=== PATIENT | male | born 1940 | race Caucasian/White ===

== ENCOUNTER 2016-06-25 18:03 | Inpatient (IN) | payer BC, OTHER ==
[~2016-06-25] VITALS: Ht 179.1 cm; Wt 71.5 kg
[~2016-06-25 18:03] MED LIST: ALL300 PO; ASPI81TA28 PO; CALC600T9 PO; CIPR-255 PO; CLB/200 PO; FRCT/ PO; METO-479 PO
[2016-06-25 19:29] LABS: BASO % 0.2 %; BASO ABS # 0.02 K/uL (0-0.2); COMPLETE YES; EOS % 5.4 %; HEMATOCRIT 43.3 % (42-52); IG% 0.5 %; LYMPH % 28.2 %; LYMPH ABS # 2.39 K/uL (1.2-3.4); MEAN CELL VOLUME 90.2 fL (80-100); MEAN CORPUSCULAR HEMOGLOBIN 30.2 pg (25-34); MEAN CORPUSCULAR HGB CONC 33.5 g/dl (32-36); MEAN PLATELET VOLUME 10.6 fL (7.4-10.4); MONO % 9.7 %; PLATELET COUNT 229 K/uL (130-400); WHITE BLOOD COUNT 8.48 K/uL (4.8-10.8)
[2016-06-25] MEDS ORDERED: ASPIRIN 81 MG CHEW PO STA (19:50)
[2016-06-25 19:53] LABS: BUN/CREATININE RATIO 24.5 (10-20); CALCIUM 10.3 mg/dl (8.5-10.1); POTASSIUM 4.3 mmol/L (3.5-5.1)
[2016-06-25 19:57] LABS: ALB/GLOB RATIO 1.1 (0.9-2); CKMB/CK RATIO 3.2 (0-3.0)
--- NOTE | 2016-06-25 20:22 | DIAGNOSTIC IMAGING REPORT ---
SINGLE VIEW CHEST CLINICAL HISTORY: Dyspnea. Atypical chest pain. FINDINGS: An AP, portable, upright chest radiograph is compared to study dated 12/25/2015 and correlated with chest CT dated 03/02/2006. The examination is degraded by portable technique and patient rotation. The heart is enlarged and there is atherosclerotic calcification. There is mild pulmonary vascular congestion. There are low lung volumes and bibasilar atelectasis. No large pleural effusion or pneumothorax is seen. The skeletal structures are osteopenic. The bony thorax is grossly intact. Surgical anchors are noted in the left humeral head. IMPRESSION: Cardiomegaly with evidence of mild congestive failure. Electronically signed by: Des Rush M.D. 06/25/2016 8:21 PM
[2016-06-25] MEDS ORDERED: METO-217 PO (20:23)
[2016-06-25] MEDS ORDERED: BUTALBITAL/ACETAMIN/CAFFEINE TAB PO PRN (20:30)
[2016-06-25 21:00] LABS: PROTHROMBIN TIME (PATIENT) 10.4 SECONDS (9.0-12.0)
[2016-06-25] MEDS ORDERED: ZOLPIDEM TARTRATE 5 MG TAB PO PRN (21:00)
[2016-06-25] MEDS ORDERED: CIPROFLOXACIN 500 MG TAB PO SCH (21:00)
[2016-06-25] MEDS ORDERED: METOPROLOL SUCC 50MG EXT REL TAB PO SCH (21:00)
[2016-06-25] MEDS ORDERED: ONDANSETRON INJ 2 MG/ML 2 ML VIAL IV PRN (21:00)
[2016-06-25] MEDS ORDERED: NITROGLYCERIN 0.4 MG SL PER TAB CHARGE SL PRN (21:00)
[2016-06-25] MEDS ORDERED: ACETAMINOPHEN 325 MG TAB PO PRN (21:00)
[2016-06-25 21:40] LABS: LYME DISEASE AB IGG NEG (NEG); LYME DISEASE AB IGM NEG (NEG)
[2016-06-25 22:12] LABS: CKMB/CK RATIO 3.4 (0-3.0)
[2016-06-25 22:40] VITALS: BP_SYST 199; BP_SYST 205; BP_DIAS 49; BP_DIAS 87; PULSE 64; TEMP 36.6; O2SAT 96; Ht 179.1 cm; Wt 71.5 kg
--- NOTE | 2016-06-25 22:44 | History and Physical ---
History & Physical Date & Time of Service: Jun 25, 2016 at 22:34 Chief Complaint: Atrial Flutter, Paroxysmal Primary Care Physician: Eyal Monroe M.D. History of Present Illness Source: patient, spouse The patient is a 75-year-old male who presents to emergency department with substernal burning in his chest that occurred while he was out sleeping some snow off the front of his porch and steps. She reports that his had these similar symptoms on previous occasions this winter when his gone out to sweep snow. He presents emergency department for assessment, and had initial EKG which suggested atrial flutter with 3-1 block, which was discussed with Dr. Norton from cardiology, the patient was referred for evaluation for admission. Past Medical/Surgical History Medical Problems: (1) Scoliosis Status: Chronic Family History Diabetes mellitus FH: cancer FH: heart disease Hypertension Social History Smoking Status: Never Smoker Smokeless Tobacco Use: No Alcohol Use: none Drug Use: none Marital Status: Housing status: lives with family Occupational Status: unemployed Immunizations History of Influenza Vaccine: No History of Tetanus Vaccine?: Unknown History of Pneumococcal: Yes Pneumococcal Date: Jul 10, 2009 History of Hepatitis B Vaccine: No Multi-Drug Resistant Organisms History of MDRO: No Allergies Coded Allergies: No Known Allergies (Verified , 06/25/16) Home Medications Scheduled Allopurinol (Allopurinol), 150 MG PO DAILY Aspirin (Aspirin Ec), 81 MG PO DAILY Celecoxib (CeleBREX), 200 MG PO DAILY Metoprolol Succinate (Toprol Xl), 50 MG PO BID Scheduled PRN Acetamin/Butalbital/Caffeine (Fioricet), 1 TAB PO UD PRN for Headache Review of Systems The patient denies palpitations, cough, lower extremity swelling, vision change , hearing change, sore throat, fevers, chills, sweats, weight change, fatigue, nausea, vomiting, abdominal pain, pelvic pain, blood in urine or stool, dysuria , urinary frequency or urgency, lightheadedness, dizziness, headache, memory loss, rash, abnormal bruising or bleeding, imbalance, focal or generalized weakness, numbness or tingling in arms or legs, arthralgias or myalgias, back or neck pain, night sweats, or allergy symptoms. The review of systems is otherwise negative other than for that already noted above, and at least 10 systems have been reviewed. Physical Exam Vital Signs Date Time Temp Pulse Resp B/P Pulse Ox O2 Delivery O2 Flow Rate FiO2 06/25/16 22:02 36.6 77 19 169/92 95 06/25/16 21:33 77 19 95 06/25/16 21:29 169/92 06/25/16 21:28 57 18 96 06/25/16 21:23 58 19 96 06/25/16 21:18 55 22 97 06/25/16 21:13 57 19 96 06/25/16 21:08 68 16 96 06/25/16 21:03 59 15 96 06/25/16 21:00 155/106 06/25/16 20:58 58 22 95 06/25/16 20:53 54 22 95 06/25/16 20:48 57 22 96 06/25/16 20:43 57 22 95 06/25/16 20:38 57 20 96 06/25/16 20:33 57 24 96 06/25/16 20:29 179/82 06/25/16 20:28 60 17 96 06/25/16 20:23 57 16 96 06/25/16 20:18 66 21 94 06/25/16 20:13 58 22 97 06/25/16 20:08 59 22 96 06/25/16 20:03 67 19 98 06/25/16 19:58 59 23 98 06/25/16 19:53 62 17 98 06/25/16 19:48 58 19 98 06/25/16 19:43 67 24 97 06/25/16 19:38 56 17 97 06/25/16 19:33 56 21 96 06/25/16 19:29 152/119 06/25/16 19:28 69 17 96 06/25/16 19:27 52 06/25/16 19:27 56 18 173/85 97 Room Air 06/25/16 19:26 97 Room Air 06/25/16 19:21 173/85 06/25/16 19:10 97 Room Air 06/25/16 18:06 36.6 71 18 171/73 97 Room Air The patient is awake, well-developed and adequately nourished, alert and oriented 3, normocephalic and atraumatic, lying in bed and in no acute distress. HEENT--PERRL, EOMI, mucous membranes moist, and oropharynx normal. Neck--supple, no JVD or bruits, thyroid normal, trachea midline, no adenopathy. Heart--normal S1 and S2, no extra beats, no murmurs, rubs or gallops. Lungs--clear bilaterally with good air movement, no respiratory distress, no accessory muscle use. Abdomen--normal bowel sounds and soft, nontender and nondistended, no hernias or masses, no organomegaly. Extremities--no cyanosis, clubbing or edema. There are good distal pulses b/l. Dermatologic--normal skin turgor, normal color, warm and dry, no abnormal lymph nodes, no rash. Neurologic--cranial nerves II through XII grossly intact. Rheumatologic--normal range of motion, nontender, muscles and joints. Psychiatric--normal affect. Diagnostics Laboratory Results Results Past 24 Hours Test 06/25/16 19:15 06/25/16 19:24 06/25/16 20:33 Range/Units White Blood Count 8.48 4.8-10.8 K/uL Red Blood Count 4.80 4.7-6.1 M/uL Hemoglobin 14.5 14.0-18.0 g/dL Hematocrit 43.3 42-52 % Mean Corpuscular Volume 90.2 80-100 fL Mean Corpuscular Hemoglobin 30.2 25-34 pg Mean Corpuscular Hemoglobin Concent 33.5 32-36 g/dl Platelet Count 229 130-400 K/uL Mean Platelet Volume 10.6 7.4-10.4 fL Neutrophils (%) (Auto) 56.0 % Lymphocytes (%) (Auto) 28.2 % Monocytes (%) (Auto) 9.7 % Eosinophils (%) (Auto) 5.4 % Basophils (%) (Auto) 0.2 % Neutrophils # (Auto) 4.75 1.4-6.5 K/uL Lymphocytes # (Auto) 2.39 1.2-3.4 K/uL Monocytes # (Auto) 0.82 0.11-0.59 K/uL Eosinophils # (Auto) 0.46 0-0.5 K/uL Basophils # (Auto) 0.02 0-0.2 K/uL RDW Standard Deviation 44.2 36.4-46.3 fL RDW Coefficient of Variation 13.4 11.5-14.5 % Immature Granulocyte % (Auto) 0.5 % Immature Granulocyte # (Auto) 0.04 0.00-0.02 K/uL Sodium Level 143 136-145 mmol/L Potassium Level 4.3 3.5-5.1 mmol/L Chloride Level 109 98-107 mmol/L Carbon Dioxide Level 25 21-32 mmol/L Anion Gap 9.0 3-11 mmol/L Blood Urea Nitrogen 25 7-18 mg/dl Creatinine 1.00 0.60-1.40 mg/dl Est Creatinine Clear Calc Drug Dose 63.9 ml/min Estimated GFR () 83.8 Estimated GFR (Non- 72.3 BUN/Creatinine Ratio 24.5 10-20 Random Glucose 90 70-99 mg/dl Calcium Level 10.3 8.5-10.1 mg/dl Total Bilirubin 0.2 0.2-1 mg/dl Aspartate Amino Transf (AST/SGOT) 24 15-37 U/L Alanine Aminotransferase (ALT/SGPT) 35 12-78 U/L Alkaline Phosphatase 101 45-117 U/L Total Creatine Kinase 72 61 39-308 U/L Creatine Kinase MB 2.3 2.1 0.5-3.6 ng/ml Creatine Kinase MB Ratio 3.2 3.4 0-3.0 Total Protein 7.2 6.4-8.2 gm/dl Albumin 3.8 3.4-5.0 gm/dl Globulin 3.4 2.5-4.0 gm/dl Albumin/Globulin Ratio 1.1 0.9-2 Bedside Troponin I 0.110 0-0.045 ng/ml Prothrombin Time 10.4 9.0-12.0 SECONDS Prothromb Time International Ratio 1.0 0.9-1.1 Activated Partial Thromboplast Time 25.9 21.0-31.0 SECONDS Partial Thromboplastin Ratio 1.0 Troponin I 0.096 0-0.045 ng/ml Thyroid Stimulating Hormone (TSH) 1.910 0.300-4.500 uIu/ml Lyme Disease IgG Antibody NEG NEG Lyme Disease IgM Antibody NEG NEG Diagnostic Radiology Patient Name: ZITA BRUSH Unit Number: [id number] Dictated: 06/25/162019 Transcribed: 06/25/162019 EV Printed Date/Time: [~ rep prt dt]/[~ rep prt tm] [~ rep ct labl] - [~ rep ct ivnm] [facility] Radiology Department [place], [place] [id number] Dictated: 06/25/162019 Transcribed: 06/25/162019 EV Printed Date/Time: [~ rep prt dt]/[~ rep prt tm] [~ rep ct labl] - [~ rep ct ivnm] SINGLE VIEW CHEST CLINICAL HISTORY: Dyspnea. Atypical chest pain. FINDINGS: An AP, portable, upright chest radiograph is compared to study dated 12/25/2015 and correlated with chest CT dated 03/02/2006. The examination is degraded by portable technique and patient rotation. The heart is enlarged and there is atherosclerotic calcification. There is mild pulmonary vascular congestion. There are low lung volumes and bibasilar atelectasis. No large pleural effusion or pneumothorax is seen. The skeletal structures are osteopenic. The bony thorax is grossly intact. Surgical anchors are noted in the left humeral head. IMPRESSION: Cardiomegaly with evidence of mild congestive failure. Electronically signed by: Des Rush M.D. 06/25/2016 8:21 PM The status of this report is Signed. Draft = Not yet reviewed or approved by Radiologist. Signed = Reviewed and approved by Radiologist. <AttendingPhy></AttendingPhy> <FamilyPhy>Eyal Monroe M.D.</FamilyPhy > <PrimaryPhy>Eyal Monroe M.D.</PrimaryPhy> <UnitNumber>[id number]</ UnitNumber> <VisitNumber>[id number]</VisitNumber> <PatientName>ZITA BRUSH< /PatientName> <DateOfBirth>1940</DateOfBirth> <Location>C.EDB</Location> < ServiceDate>06/25/16</ServiceDate> <MNE>ESINDI</MNE> <OrderingPhy>ED, PROTOCOL</ OrderingPhy> <OrderingPhyMNE>f rep ord dr zambrano</OrderingPhyMNE> <DictatingPhyMNE> f rep dict dr zambrano</DictatingPhyMNE> <CCListMNE>f rep ct mne</CCListMNE> < AdmittingPhyMNE>f pt admit dr zambrano</AdmittingPhyMNE> <AttendingPhyMNE>f pt attend dr zambrano</AttendingPhyMNE> <ConsultingPhyMNE>f pt consult dr zambrano</ConsultingPhyMNE> <FamilyPhyMNE>f pt fam dr zambrano</FamilyPhyMNE> <OtherPhyMNE>f pt other dr zambrano</OtherPhyMNE> < PrimaryPhyMNE>f pt prim care dr zambrano</PrimaryPhyMNE> <ReferringPhyMNE>f pt referring dr zambrano</ReferringPhyMNE> EKG The patient had 2 EKGs performed in emergency department: First EKG showed atrial flutter with 3-1 block, with no acute ST-T changes. The second EKG showed normal sinus rhythm with no acute ST-T changes. This second one was performed at the patient spontaneously converted Impression Assessment and Plan Atrial flutter with 3:1 block, with conversion to normal sinus rhythm will emergency department--the patient admitted to the telemetry unit, for serial cardiac enzymes, cardiac rhythm monitoring, a 2-D echocardiogram with Dopplers, and will be seen by cardiology Dr. Norton in the a.m. We'll continue metoprolol tartrate 50 mg by mouth twice a day, aspirin 81 mg by mouth daily, will have available Lopressor 5 mg IV every 4 hours when necessary heart rate greater than 110. Gout--continue allopurinol 300 mg by mouth daily. Osteoarthritis--continue Celebrex 200 mg by mouth daily. Migraine headache--continue Fioricet 1 by mouth daily when necessary. Level of Care Telemetry Advanced Directives Existing Advance Directive: No Existing Living Will: No Existing Power of Camera Assembler: No Resuscitation Status FULL RESUSCITATION VTE Prophylaxis VTE Risk Assessment Done? Y/N: Yes Risk Level: Moderate Given or contraindicated: SCD's Social Service Consult None Apply
[2016-06-25] MEDS ORDERED: METOPROLOL TARTRATE 1 MG/ML VIAL IV PRN (22:45)
[2016-06-25 23:17] VITALS: BP 157/67; PULSE 54; TEMP 36.7; O2SAT 97
[2016-06-26] VITALS (10 sets, daily range): BP systolic 148–178; BP diastolic 67–82; PULSE 51–78; TEMP 36.5–36.9; O2SAT 95–97
[2016-06-26] MEDS: METOPROLOL SUCC 50MG EXT REL TAB PO SCH ×2 (00:06→08:07)
[2016-06-26] MEDS: CALCIUM 600MG + VIT D 400 IU TAB PO SCH ×3 (00:07→20:32)
[2016-06-26] MEDS ORDERED: NURSING VERBAL MED ORDER ONE (00:15)
[2016-06-26] MEDS ORDERED: LORAZEPAM 0.5 MG TAB ONE (00:22)
[2016-06-26] MEDS ORDERED: LORAZEPAM INJ 0.25 MG in SYRINGE 0.125 ML IV PRN (00:30)
[2016-06-26] MEDS ORDERED: LORAZEPAM 2 MG/ML 1 ML VIAL IV PRN (00:30)
--- NOTE | 2016-06-26 01:25 | EMERGENCY ROOM VISIT NOTE ---
History Report prepared by Todd: Orly Gomez Under the Supervision of: Dr. Aaron Blanchard M.D. First contact with patient: 19:28 Chief Complaint: RESPIRATORY PROBLEMS Stated Complaint: CHEST PAIN Nursing Triage Summary: having sob when Im out in the cold. symptoms have been ongoing for a while now History of Present Illness The patient is a 75 year old male who presents to the Emergency Room with complaints of intermittent shortness of breath for the past few weeks. He is accompanied by his . He reports the shortness of breath seems to worsen when he is outside in the cold weather and also with exertion. This afternoon around 1500, he went outside to shovel his driveway when his symptoms worsened. He also experienced some brief chest pain and shoulder pain. He states he feels "fine" here in the ED. The patient admits to a similar episode like today's symptoms "a few weeks ago", where he also experienced shortness of breath after exertion and brief chest pain. He admits to a history of a heart murmur, but states he has not seen a Head Bag[employer] Porter in a few years. He also has a history of hypertension and takes Toprol daily and states his dosage was recently increased. He also takes a daily Aspirin and notes he took 2 Aspirin prior to arrival this evening. The patient denies LOC, headache, fevers, chills, diaphoresis, visual changes, neck pain, nausea, vomiting, abdominal pain, back pain, melena, hematochezia, urinary symptoms, numbness, weakness, lymphadenopathy, rash, or other complaints. 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 A total of ten systems were reviewed and were otherwise negative. Past Medical & Surgical Medical Problems: (1) Atrial flutter, paroxysmal (2) Scoliosis Family History Diabetes mellitus FH: cancer FH: heart disease Hypertension Social History Smoking Status: Never Smoker Drug Use: none Marital Status: Housing Status: lives with family Occupation Status: unemployed Current/Historical Medications Scheduled Allopurinol (Allopurinol), 150 MG PO DAILY Aspirin (Aspirin Ec), 81 MG PO DAILY Celecoxib (CeleBREX), 200 MG PO DAILY Metoprolol Succinate (Toprol Xl), 50 MG PO BID Scheduled PRN Acetamin/Butalbital/Caffeine (Fioricet), 1 TAB PO UD PRN for Headache Allergies Coded Allergies: No Known Allergies (Verified , 06/25/16) Physical Exam Vital Signs Date Time Temp Pulse Resp B/P Pulse Ox O2 Delivery O2 Flow Rate FiO2 06/25/16 20:53 54 22 95 06/25/16 20:48 57 22 96 06/25/16 20:43 57 22 95 06/25/16 20:38 57 20 96 06/25/16 20:33 57 24 96 06/25/16 20:29 179/82 06/25/16 20:28 60 17 96 06/25/16 20:23 57 16 96 06/25/16 20:18 66 21 94 06/25/16 20:13 58 22 97 06/25/16 20:08 59 22 96 06/25/16 20:03 67 19 98 06/25/16 19:58 59 23 98 06/25/16 19:53 62 17 98 06/25/16 19:48 58 19 98 06/25/16 19:43 67 24 97 06/25/16 19:38 56 17 97 06/25/16 19:33 56 21 96 06/25/16 19:29 152/119 06/25/16 19:28 69 17 96 06/25/16 19:27 52 06/25/16 19:27 56 18 173/85 97 Room Air 06/25/16 19:26 97 Room Air 06/25/16 19:21 173/85 06/25/16 19:10 97 Room Air 06/25/16 18:06 36.6 71 18 171/73 97 Room Air Physical Exam GENERAL: Awake, alert, well-appearing, in no acute distress HENT: Normocephalic, atraumatic. Oropharynx unremarkable. EYES: Normal conjunctiva. Sclera non-icteric. NECK: Supple. No nuchal rigidity. FROM. No JVD. RESPIRATORY: Clear to auscultation. CARDIAC: Bradycardic heart rate, normal rhythm. Extremities warm and well perfused. Pulses equal. ABDOMEN: Soft, non-distended. No tenderness to palpation. No rebound or guarding. No masses. RECTAL: Deferred. MUSCULOSKELETAL: Chest examination reveals no tenderness. The back is symmetrical on inspection without obvious abnormality. There is no CVA tenderness to palpation. No joint edema. LOWER EXTREMITIES: Calves are equal size bilaterally and non-tender. No edema. No discoloration. NEURO: Normal sensorium. No sensory or motor deficits noted. SKIN: No rash or jaundice noted. Medical Decision & Procedures ER Provider Diagnostic Interpretation: This X-Ray was reviewed and interpreted by myself and the radiologist. SINGLE VIEW CHEST CLINICAL HISTORY: Dyspnea. Atypical chest pain. FINDINGS: An AP, portable, upright chest radiograph is compared to study dated 12/25/2015 and correlated with chest CT dated 03/02/2006. The examination is degraded by portable technique and patient rotation. The heart is enlarged and there is atherosclerotic calcification. There is mild pulmonary vascular congestion. There are low lung volumes and bibasilar atelectasis. No large pleural effusion or pneumothorax is seen. The skeletal structures are osteopenic. The bony thorax is grossly intact. Surgical anchors are noted in the left humeral head. IMPRESSION: Cardiomegaly with evidence of mild congestive failure. Electronically signed by: Des Rush M.D. 06/25/2016 8:21 PM Laboratory Results 06/25/16 19:15 Red Blood Count 4.80, Mean Corpuscular Volume 90.2, Mean Corpuscular Hemoglobin 30.2, Mean Corpuscular Hemoglobin Concent 33.5, Mean Platelet Volume 10.6, Neutrophils (%) (Auto) 56.0, Lymphocytes (%) (Auto) 28.2, Monocytes (%) (Auto) 9.7, Eosinophils (%) (Auto) 5.4, Basophils (%) (Auto) 0.2, Neutrophils # (Auto) 4.75, Lymphocytes # (Auto) 2.39, Monocytes # (Auto) 0.82, Eosinophils # (Auto) 0.46, Basophils # (Auto) 0.02 06/25/16 19:15 Test 06/25/16 19:15 06/25/16 19:24 06/25/16 20:33 White Blood Count 8.48 K/uL (4.8-10.8) Red Blood Count 4.80 M/uL (4.7-6.1) Hemoglobin 14.5 g/dL (14.0-18.0) Hematocrit 43.3 % (42-52) Mean Corpuscular Volume 90.2 fL (80-100) Mean Corpuscular Hemoglobin 30.2 pg (25-34) Mean Corpuscular Hemoglobin Concent 33.5 g/dl (32-36) Platelet Count 229 K/uL (130-400) Mean Platelet Volume 10.6 fL (7.4-10.4) Neutrophils (%) (Auto) 56.0 % Lymphocytes (%) (Auto) 28.2 % Monocytes (%) (Auto) 9.7 % Eosinophils (%) (Auto) 5.4 % Basophils (%) (Auto) 0.2 % Neutrophils # (Auto) 4.75 K/uL (1.4-6.5) Lymphocytes # (Auto) 2.39 K/uL (1.2-3.4) Monocytes # (Auto) 0.82 K/uL (0.11-0.59) Eosinophils # (Auto) 0.46 K/uL (0-0.5) Basophils # (Auto) 0.02 K/uL (0-0.2) RDW Standard Deviation 44.2 fL (36.4-46.3) RDW Coefficient of Variation 13.4 % (11.5-14.5) Immature Granulocyte % (Auto) 0.5 % Immature Granulocyte # (Auto) 0.04 K/uL (0.00-0.02) Anion Gap 9.0 mmol/L (3-11) Est Creatinine Clear Calc Drug Dose 63.9 ml/min Estimated GFR () 83.8 Estimated GFR (Non- 72.3 BUN/Creatinine Ratio 24.5 (10-20) Calcium Level 10.3 mg/dl (8.5-10.1) Total Bilirubin 0.2 mg/dl (0.2-1) Aspartate Amino Transf (AST/SGOT) 24 U/L (15-37) Alanine Aminotransferase (ALT/SGPT) 35 U/L (12-78) Alkaline Phosphatase 101 U/L (45-117) Total Protein 7.2 gm/dl (6.4-8.2) Albumin 3.8 gm/dl (3.4-5.0) Globulin 3.4 gm/dl (2.5-4.0) Albumin/Globulin Ratio 1.1 (0.9-2) Bedside Troponin I 0.110 ng/ml (0-0.045) Prothrombin Time 10.4 SECONDS (9.0-12.0) Prothromb Time International Ratio 1.0 (0.9-1.1) Activated Partial Thromboplast Time 25.9 SECONDS (21.0-31.0) Partial Thromboplastin Ratio 1.0 Total Creatine Kinase 61 U/L (39-308) Creatine Kinase MB 2.1 ng/ml (0.5-3.6) Creatine Kinase MB Ratio 3.4 (0-3.0) Troponin I 0.096 ng/ml (0-0.045) Thyroid Stimulating Hormone (TSH) 1.910 uIu/ml (0.300-4.500) Lyme Disease IgG Antibody NEG (NEG) Lyme Disease IgM Antibody NEG (NEG) Laboratory results reviewed by me Medications Administered Medications (Trade) Dose Ordered Sig/Jazzy Route Start Time Stop Time Status Last Admin Dose Admin Aspirin (Aspirin Chew) 162 mg NOW STAT PO 06/25/16 19:50 06/25/16 19:51 DC 06/25/16 19:59 162 MG ECG Indication: SOB/dyspnea Rate (beats per minute): 57 Rhythm: other (Slow flutter with 3 to 1 AV block) Findings: complete heart block, 1st degree AV block Comparison ECG Date: Rate has increased when compared to EKG from 03/08/14 Change: 2nd EKG on 06/25/16: Sinus Bradycardia, rate of 59, LVH, Septal Q-Waves, when compared to first EKG, the 3-1 flutter resolved. ED Course 1937: The patient was evaluated in room B9. A complete history and physical exam was performed. 1950: Aspirin 162 mg PO. 1952: I discussed the patients case with Dr. Norton, [facility] Cardiology. The patient will be further evaluated. 2012: I discussed the patients case with Dr. Zuniga, [facility] Hospitalist. The patient will be further evaluated. Medical Decision Triage Nursing notes reviewed. The patient's presentation and history were concerning for chest pain and shortness of breath. Etiologies such as cardiac ischemia, aortic dissection, pulmonary embolism, pneumonia, pneumothorax, musculoskeletal, infections, gastrointestinal, as well as others were entertained. The patient was evaluated. His ECG was concerning for a possible block versus 3 -1 a flutter. I did consult with Dr. Mario Alberto Norton of cardiology. After further review it appears the patient has a rate controlled A. fib flutter. The patient's CBC and chemistry panel were unremarkable. His troponin was elevated concerning for non-ST elevation [place]. The patient was given aspirin. I did discuss the case with Dr. Azam Zuniga who will evaluate the patient for further management. He was going to see the patient right away and will order any anticoagulation necessary. Repeat ECG was performed and revealed return to sinus rhythm. The patient and were informed of the findings and were pleased with the treatment. The chart was completed utilizing [employer] Speech voice recognition software. Grammatical errors, random word insertions, pronoun errors, and incomplete sentences are an occasional consequence of this system due to software limitations, ambient noise, and hardware issues. Any formal questions or concerns about the content, text, or information contained within the body of this dictation should be directly addressed to the physician for clarification. Consults Time Called: 1949 Consulting Physician: Dr. Norton [facility] Cardiology Returned Call: 1952 I discussed the [facility] The patient will be further evaluated. Additional Consults: Time Called: 2009 Consulted Physician: Dr. Zuniga [facility] Hospitalist Returned Call: 2012 Additional Comments: I discussed the patients case with Dr. Zuniga [facility] Hospitalist. The patient will be further evaluated. Impression Primary Impression: Elevated troponin Additional Impressions: NSTEMI (non-ST elevated myocardial infarction), New onset atrial flutter Scribe Attestation The scribe's documentation has been prepared under my direction and personally reviewed by me in its entirety. I confirm that the note above accurately reflects all work, treatment, procedures, and medical decision making performed by me. Departure Information Dispostion Being Evaluated By Hospitalist Eyal Huang M.D. (PCP) Patient Instructions A Signature Page, [facility]
[2016-06-26 04:47] LABS: BASO % 0.4 %; BASO ABS # 0.03 K/uL (0-0.2); COMPLETE YES; EOS % 6.2 %; HEMATOCRIT 41.6 % (42-52); IG% 0.2 %; LYMPH % 31.8 %; LYMPH ABS # 2.71 K/uL (1.2-3.4); MEAN CELL VOLUME 91.6 fL (80-100); MEAN CORPUSCULAR HEMOGLOBIN 30.8 pg (25-34); MEAN CORPUSCULAR HGB CONC 33.7 g/dl (32-36); MEAN PLATELET VOLUME 10.9 fL (7.4-10.4); NEUT % 51.4 %; PLATELET COUNT 194 K/uL (130-400); RED BLOOD COUNT 4.54 M/uL (4.7-6.1); WHITE BLOOD COUNT 8.52 K/uL (4.8-10.8)
[2016-06-26 05:07] LABS: BUN/CREATININE RATIO 19.3 (10-20); CALCIUM 10.6 mg/dl (8.5-10.1); CREATININE 1.1 mg/dl (0.60-1.40); POTASSIUM 4.8 mmol/L (3.5-5.1)
[2016-06-26 05:11] LABS: CKMB/CK RATIO 3.2 (0-3.0)
[2016-06-26] MEDS: ALLOPURINOL 300 MG TAB PO SCH (08:07)
[2016-06-26] MEDS: ASPIRIN 81 MG ECTAB PO SCH (08:07)
[2016-06-26] MEDS: CeleBREX 200 MG CAP PO SCH (08:07)
--- NOTE | 2016-06-26 13:27 | ECHOCARDIOGRAM REPORT ---
*NOTICE TO RECEIVING REPUBLICAN AGENCY This information is strictly Confidential and protected under [place] law. [place] law prohibits you from making any further disclosure of this information unless further disclosure is expressly permitted by the written consent of the person to whom it pertains or is authorized by law. A general authorization for the release of medical or other information is not sufficient for this purpose. Hospital accepts no responsibility if the information is made available to any other person, INCLUDING THE PATIENT. Interpretation Summary * Name: ZITA BRUSH Study Date: 06/26/2016 08:04 AM BP: 170/68 mmHg * Patient Location: C.2T\S\S229\S\1 HR: 63 * : 1940 (M/d/yyy) Gender: Male Height: 70 in * Age: 75 yrs Ethnicity: [place] Weight: 166 lb * Ordering Physician: Azam Zuniga * Referring Physician: Emil Waite PA-C * Performed By: Laila Tellez RCS * * Reason For Study: A-FLUTTER * BSA: 1.9 m2 * -- Conclusions -- * 1. Normal left ventricular size with hyperdynamic systolic function. EF > 70%. No regional wall motion abnormalities. Severe concentric left ventricular hypertrophy with asymmetric severe hypertrophy of the septal base, measuring up to 1.9 cm. Type 1 diastolic dysfunction. * 2. Mild intracavitary LV gradient up to 13mmHg. * 3. Aortic valve appears stenotic visually, but Doppler study suggests no significant stenosis. Trace aortic regurgitation. * 4. There is systolic anterior motion of the mitral valve. * 5. Compared to prior study on 12/25/2015, LV intracavitary gradient is now mild and was much more significant on prior study. There is no significant aortic stenosis on either study, based on Doppler studies. Procedure Details * A complete two-dimensional transthoracic echocardiogram was performed (2D, M-mode, Doppler and color flow Doppler). Left Ventricle * Normal left ventricular size with hyperdynamic systolic function. EF > 70%. No regional wall motion abnormalities. Severe concentric left ventricular hypertrophy with asymmetric severe hypertrophy of the septal base, measuring up to 1.9 cm. Type 1 diastolic dysfunction. Right Ventricle * The right ventricle is normal in size and function. * The right ventricular systolic function is normal as assessed by tricuspid annular plane systolic excursion (TAPSE) (normal >1.5 cm). Atria * The left atrial size is normal. * Right atrial size is normal. * There is no evidence of atrial septal defect, but resolution does not allow assessment for a patent foramen ovale. Mitral Valve * There is mild mitral annular calcification. * There is systolic anterior motion of the mitral valve. * There is no mitral valve stenosis. * Significant mitral regurgitation is absent. Tricuspid Valve * The tricuspid valve is not well visualized, but is grossly normal. * There is no tricuspid stenosis. * There is trace tricuspid regurgitation. Aortic Valve * The aortic valve is trileaflet. * Aortic valve appears stenotic visually, but Doppler study suggests no significant stenosis. * Trace aortic regurgitation. Pulmonic Valve * The pulmonary valve is inadequately visualized, but the Doppler data is adequate for interpretation. * There is no pulmonic valvular stenosis. * Trace pulmonic valvular regurgitation. Great Vessels * The aortic root is normal size. * Ascending aorta of normal dimension * Aortic arch of normal dimension. * Normal pulmonary venous flow pattern. Pericardium/Pleural * There is no pericardial effusion. Great Vessels * IVC not well visualized but appears mildly dilated. MMode 2D Measurements and Calculations IVSd 1.5 cm IVSs 1.7 cm LVIDd 3.6 cm LVIDs 1.9 cm LVPWd 1.5 cm LVPWs 1.6 cm IVS/LVPW 1.0 FS 47.8 % EDV(Teich) 52.8 ml ESV(Teich) 10.5 ml EF(Teich) 80.1 % EDV(cubed) 44.9 ml ESV(cubed) 6.4 ml EF(cubed) 85.7 % % IVS thick 16.6 % % LVPW thick 10.5 % LV mass(C)d 195.4 grams LV mass(C)dI 101.3 grams/m\S\2 LV mass(C)s 115.0 grams LV mass(C)sI 59.6 grams/m\S\2 SV(Teich) 42.3 ml SI(Teich) 21.9 ml/m\S\2 SV(cubed) 38.5 ml SI(cubed) 20.0 ml/m\S\2 Ao root diam 3.3 cm Ao root area 8.6 cm\S\2 ACS 1.2 cm LA dimension 4.4 cm asc Aorta Diam 2.9 cm LA/Ao 1.3 LVOT diam 2.1 cm LVOT area 3.4 cm\S\2 Doppler Measurements and Calculations MV E max jerry 63.6 cm/sec MV A max jerry 90.1 cm/sec MV E/A 0.71 MV P1/2t max jerry 75.3 cm/sec MV P1/2t 83.9 msec MVA(P1/2t) 2.6 cm\S\2 MV dec slope 262.9 cm/sec\S\2 MV dec time 0.29 sec Ao V2 max 129.5 cm/sec Ao max PG 6.7 mmHg Ao max PG (full) 2.1 mmHg ANUM(V,A) 2.8 cm\S\2 ANUM(V,D) 2.8 cm\S\2 LV V1 max PG 4.6 mmHg LV V1 max 107.6 cm/sec TV E max jerry 53.1 cm/sec PA V2 max 147.1 cm/sec PA max PG 8.7 mmHg TR max jerry 218.9 cm/sec RVSP(TR) 27.2 mmHg RAP systole 8.0 mmHg
[2016-06-26 15:01] LABS: CKMB/CK RATIO 2.8 (0-3.0)
[2016-06-26 15:24] LABS: CHOLESTEROL/HDL RATIO 4.3
--- NOTE | 2016-06-26 15:39 | CARDIOLOGY CONSULTATION ---
DATE OF CONSULTATION: 06/26/2016 TIME: 13:30 p.m. CONSULTING PHYSICIAN: Azam Zuniga MD REASON FOR CONSULTATION: Concern for atrial flutter. HISTORY OF PRESENT ILLNESS: Mr. Angeles is a very pleasant 75-year-old gentleman with a history significant for hyperdynamic LV systolic function with intracavitary left ventricular gradient/obstruction, and hypertension. He was seen once greater than [address] Campo for cardiology, at which point discontinuation of COLLEEN inhibitor and increase in beta brittni was recommended. Presumably due to bradycardia, metoprolol was reduced back to prior dose, which was metoprolol succinate at 50 mg twice daily. He presented to the [facility] yesterday with chest discomfort. He states that for the past 1 month, while exerting himself outside in colder weather, he would develop a left-sided chest discomfort. This was described in the ER as a substernal burning and he described it to me as a sharp pain. It is nonradiating, but was accompanied by shortness of breath. There is no significant diaphoresis. It resolved within 15 minutes of rest. The symptoms tend to occur only while outside and while exerting himself in the colder weather. He does well in a warmer conditions and denies any chest discomfort at rest. He otherwise denies orthopnea, PND, syncope, near syncope, palpitations, shortness of breath at rest, edema, melena, hematochezia, hematuria, or other bleeding. He denies abdominal pain, nausea, vomiting, or diarrhea. He does not exercise on a regular basis, but remains quite active. I was called last evening by Dr. Blanchard in the Emergency Department. There was a concern for complete heart block. I was able to review the ECG remotely and stated that it appeared to be sinus rhythm; however, there was significant artifact with a very wavy baseline. I was unable to measure the ECG at that time. I was unable to measure or use calipers to evaluate the ECG at that time and stated that if it was not sinus rhythm, it potentially could be slow atrial flutter with 3:1 conduction, but recommended a repeat ECG with less artifact. At a later time, I was able to officially evaluate the ECG and use calipers. The ECG was interpreted as probable sinus rhythm. A repeat ECG was done last evening after our discussion and it did indeed demonstrate sinus rhythm. At no time did he have documented atrial flutter on ECGs and telemetry was also personally reviewed at this morning and there was no atrial flutter noted on telemetry. He has remained in sinus rhythm throughout his hospital stay, often with a mild sinus bradycardia with heart rates in the upper 50s. He has not had any further chest discomfort and feels well, resting in his hospital bed. REVIEW OF SYSTEMS: As above and other review of systems otherwise negative. PAST MEDICAL HISTORY: 1. 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 2. Hypertension. 3. Gout. 4. Scoliosis. HOME MEDICATIONS: Include: 1. Aspirin 81 mg daily. 2. Metoprolol succinate 50 mg twice daily. 3. Allopurinol 150 mg daily. 4. Celebrex 200 mg daily. INPATIENT MEDICATIONS: Include aspirin 81 mg daily, Celebrex 200 mg daily, and metoprolol succinate 50 mg p.o. b.i.d. ALLERGIES: OXYCONTIN HAS AN INTOLERANCE, STATING THAT IT CAUSES MENTAL STATUS CHANGES. No true allergies noted. SOCIAL HISTORY: Denies tobacco or drug abuse. States that he used to consume alcohol more heavily, but has not consumed alcohol for approximately 1 year. He is and lives with his . They had 1 son, who at the age of 23 with a motor vehicle accident. 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 He is currently alone in his hospital room. FAMILY HISTORY: Maternal uncle at the age of 46 with myocardial infarction. Maternal aunt at age 65 of myocardial infarction. PHYSICAL EXAMINATION: VITAL SIGNS: Temperature 36.5 degrees, heart rate 51 beats per minute, respiratory rate 16, and blood pressure 160/82 mmHg. Blood pressure has not been well controlled with a maximum systolic blood pressure of 205 mmHg throughout the hospital stay. Oxygen saturation is 97% on room air. Weight 73.8 kg. GENERAL: No acute distress. He is alert and oriented. HEENT: Anicteric sclerae. NECK: No appreciable JVD. No bruits. Normal carotid upstrokes bilaterally. CARDIAC EXAMINATION: PMI was nonpalpable. There was no ventricular heave. Regular, normal S1 and S2. There was a 1/6 early peaking systolic ejection murmur best heard at the right upper sternal border. There were no rubs or gallops auscultated. LUNGS: Clear to auscultation bilaterally without wheezes, rales or rhonchi. ABDOMEN: Soft, nontender, and nondistended. Normoactive bowel sounds. No bruits noted. EXTREMITIES: No cyanosis or edema. 2+ radial pulses bilaterally. Rob's test okay. 2+ femoral pulses bilaterally without bruit. 2+ dorsalis pedis pulses bilaterally. No edema. No palpable cords. 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 He is left handed. PSYCHIATRIC: Affect appears appropriate. LABORATORY DATA: Sodium 144, potassium 3.8, BUN 21, creatinine 1.1, and magnesium 2. Peak troponin 0.11 and it has since trended down to 0.067. TSH 1.9. AST 24 and ALT 35. White blood cell count is 8.5, hemoglobin 14, and platelets 194. INR 1. Chest x-ray image personally reviewed. No infiltrate. No evidence of CHF. Echocardiogram images were personally reviewed. Normal LV size with hyperdynamic systolic function. EF greater than 70%. No regional wall motion abnormalities. Severe concentric LVH with asymmetric severe hypertrophy of the septal base, measuring up to 1.9 cm. Type 1 diastolic dysfunction. Mild intracavitary LV gradient up to 13 mmHg. Trace AI. No significant aortic stenosis. Systolic anterior motion of the mitral valve leaflet. Prior echo images on 12/25/2015 were also personally reviewed. There was no significant aortic stenosis. There was a more significant intracavitary gradient up to 50 mmHg for a maximum gradient during that study. ECGs were personally reviewed as noted above in the HPI. There is no evidence of atrial flutter or complete heart block, but rather sinus rhythm. ASSESSMENT AND PLAN: 1. Elevated troponin and chest pain: Symptoms are concerning for ischemic heart disease given the fact that they are exertional and have been worsening over the past month, but also seemed to correlate with colder weather. We discussed this at length and cardiac catheterization was recommended. He was made aware that CT surgery is not available at this facility. He has given verbal consent to undergo diagnostic coronary angiography and PCI, if deemed appropriate, at the [facility]. If no obstructive coronary artery disease is noted, certainly hyperdynamic left ventricle with intracavitary obstruction and significant left ventricular hypertrophy, could certainly cause both his chest discomfort and elevated troponins. Treatment for this as below. 2. Left ventricular intracavitary gradient/obstruction with systolic anterior motion of the mitral leaflet: He has a hyperdynamic left ventricle with severe left ventricular hypertrophy. This could cause his chest discomfort and elevated troponins as above. Treatment may be difficult as he is bradycardic on 50 mg of metoprolol succinate twice daily. We will try carvedilol 12.5 mg twice daily in place of metoprolol, so that we can hopefully titrate the dose to a larger dose to both improved blood pressure, and hopefully also keep him somewhat on the bradycardic side with heart rate hopefully in the 50s or lower 60s. We would avoid potent preload or afterload reducers as this could worsen gradient and worsen symptoms. Avoid dehydration. Remain well hydrated. 3. Chest pain: Could be due to ischemic heart disease or LV intracavitary obstruction as noted above. Coronary angiography as above to evaluate for ischemic heart disease. If he is found to have ischemic heart disease, would discontinue Celebrex and start high intensity statin therapy. Fasting lipid profile ordered today. 4. Hypertension: Blood pressure not well controlled. Hopefully, changing metoprolol to carvedilol will offer better blood pressure control and also giving negative chronotropic effect to help with his hyperdynamic left ventricle. Avoid potent preload or afterload reducers as this could worsen his LV intracavitary obstruction/gradient. 5. Abnormal ECG: There was concern that his ECG demonstrated atrial flutter. His ECG demonstrated sinus rhythm, not atrial flutter. There was significant artifact on the first ECG and when this was repeated, it once again confirmed sinus rhythm. The ECG with artifact was also interpreted as sinus rhythm when formally reviewed last night. This was discussed in detail with the patient as well as Dr. Goode, primary hospitalist. 6. Mitral valve disorder: He does have systolic anterior motion of the mitral leaflets. There was no significant mitral regurgitation. Beta brittni change recommended as noted above. 7. Disposition: Cardiac catheterization is being planned for 06/28/2016 as this is not an urgent indication, but rather elective. Given his worsening symptoms, however, as an outpatient with very little exertion outside and abnormal troponins, would recommend that he remains hospitalized until ischemic evaluation is completed. He is agreeable to do this. Plan of care has been discussed with Dr. Goode. Highly complex medical issues. Cardiology will continue to follow. Thank for allowing me to participate in the care of Mr. Angeles. Sincerely, GILBERTO
--- NOTE | 2016-06-26 17:39 | Progress Note ---
Subjective Date of Service: Jun 26, 2016. Subjective Pt evaluation today including: conversation w/ patient, physical exam, chart review, lab review, review of studies, conversation w/ cardiology consultant, review of inpatient medication list feeling fine now no cp no sob. for [facility] tuesday. understands rationale for this and risks/benefits. no new problems. Problem List Medical Problems: (1) Elevated troponin Status: Acute (2) New onset atrial flutter Status: Acute (3) NSTEMI (non-ST elevated myocardial infarction) Status: Acute Review of Systems ros otherwise negative except for as above Objective Vital Signs Date Time Temp Pulse Resp B/P Pulse Ox O2 Delivery O2 Flow Rate FiO2 06/26/16 16:00 96 Room Air 06/26/16 15:33 36.6 59 16 178/67 96 Room Air 06/26/16 12:00 Room Air 06/26/16 11:58 36.5 51 16 160/82 97 Room Air 06/26/16 08:17 36.7 58 16 170/68 97 Room Air 06/26/16 08:10 66 06/26/16 07:05 Room Air 06/26/16 04:02 Room Air 06/26/16 02:45 36.6 64 17 154/73 96 Room Air 06/26/16 00:02 Room Air 06/25/16 23:17 36.7 54 17 157/67 97 Room Air 06/25/16 22:40 36.6 64 20 199/87 96 Room Air 205/49 06/25/16 22:02 36.6 77 19 169/92 95 06/25/16 21:33 77 19 95 06/25/16 21:29 169/92 06/25/16 21:28 57 18 96 06/25/16 21:23 58 19 96 06/25/16 21:18 55 22 97 06/25/16 21:13 57 19 96 06/25/16 21:08 68 16 96 06/25/16 21:03 59 15 96 06/25/16 21:00 155/106 06/25/16 20:58 58 22 95 06/25/16 20:53 54 22 95 06/25/16 20:48 57 22 96 06/25/16 20:43 57 22 95 06/25/16 20:38 57 20 96 06/25/16 20:33 57 24 96 06/25/16 20:29 179/82 06/25/16 20:28 60 17 96 06/25/16 20:23 57 16 96 06/25/16 20:18 66 21 94 06/25/16 20:13 58 22 97 06/25/16 20:08 59 22 96 06/25/16 20:03 67 19 98 06/25/16 19:58 59 23 98 06/25/16 19:53 62 17 98 06/25/16 19:48 58 19 98 06/25/16 19:43 67 24 97 06/25/16 19:38 56 17 97 06/25/16 19:33 56 21 96 06/25/16 19:29 152/119 06/25/16 19:28 69 17 96 06/25/16 19:27 52 06/25/16 19:27 56 18 173/85 97 Room Air 06/25/16 19:26 97 Room Air 06/25/16 19:21 173/85 06/25/16 19:10 97 Room Air 06/25/16 18:06 36.6 71 18 171/73 97 Room Air Physical Exam General Appearance: no apparent distress Eyes: EOMI ENT: hearing grossly normal Neck: trachea midline Respiratory/Chest: no respiratory distress, no accessory muscle use Extremities: normal range of motion Neurologic/Psychiatric: development system efficiency manager II-XII nml as tested, alert, normal mood/affect Skin: normal color, warm/dry Laboratory Results Last 24 Hours Test 06/25/16 19:15 06/25/16 19:24 06/25/16 20:33 06/26/16 04:35 White Blood Count 8.48 K/uL 8.52 K/uL Red Blood Count 4.80 M/uL 4.54 M/uL Hemoglobin 14.5 g/dL 14.0 g/dL Hematocrit 43.3 % 41.6 % Mean Corpuscular Volume 90.2 fL 91.6 fL Mean Corpuscular Hemoglobin 30.2 pg 30.8 pg Mean Corpuscular Hemoglobin Concent 33.5 g/dl 33.7 g/dl Platelet Count 229 K/uL 194 K/uL Mean Platelet Volume 10.6 fL 10.9 fL Neutrophils (%) (Auto) 56.0 % 51.4 % Lymphocytes (%) (Auto) 28.2 % 31.8 % Monocytes (%) (Auto) 9.7 % 10.0 % Eosinophils (%) (Auto) 5.4 % 6.2 % Basophils (%) (Auto) 0.2 % 0.4 % Neutrophils # (Auto) 4.75 K/uL 4.38 K/uL Lymphocytes # (Auto) 2.39 K/uL 2.71 K/uL Monocytes # (Auto) 0.82 K/uL 0.85 K/uL Eosinophils # (Auto) 0.46 K/uL 0.53 K/uL Basophils # (Auto) 0.02 K/uL 0.03 K/uL RDW Standard Deviation 44.2 fL 44.7 fL RDW Coefficient of Variation 13.4 % 13.4 % Immature Granulocyte % (Auto) 0.5 % 0.2 % Immature Granulocyte # (Auto) 0.04 K/uL 0.02 K/uL Sodium Level 143 mmol/L 144 mmol/L Potassium Level 4.3 mmol/L 4.8 mmol/L Chloride Level 109 mmol/L 109 mmol/L Carbon Dioxide Level 25 mmol/L 30 mmol/L Anion Gap 9.0 mmol/L 5.0 mmol/L Blood Urea Nitrogen 25 mg/dl 21 mg/dl Creatinine 1.00 mg/dl 1.10 mg/dl Est Creatinine Clear Calc Drug Dose 63.9 ml/min 59.0 ml/min Estimated GFR () 83.8 74.7 Estimated GFR (Non- 72.3 64.4 BUN/Creatinine Ratio 24.5 19.3 Random Glucose 90 mg/dl 93 mg/dl Calcium Level 10.3 mg/dl 10.6 mg/dl Total Bilirubin 0.2 mg/dl Aspartate Amino Transf (AST/SGOT) 24 U/L Alanine Aminotransferase (ALT/SGPT) 35 U/L Alkaline Phosphatase 101 U/L Total Creatine Kinase 72 U/L 61 U/L 57 U/L Creatine Kinase MB 2.3 ng/ml 2.1 ng/ml 1.8 ng/ml Creatine Kinase MB Ratio 3.2 3.4 3.2 Total Protein 7.2 gm/dl Albumin 3.8 gm/dl Globulin 3.4 gm/dl Albumin/Globulin Ratio 1.1 Bedside Troponin I 0.110 ng/ml Prothrombin Time 10.4 SECONDS Prothromb Time International Ratio 1.0 Activated Partial Thromboplast Time 25.9 SECONDS Partial Thromboplastin Ratio 1.0 Troponin I 0.096 ng/ml 0.067 ng/ml Thyroid Stimulating Hormone (TSH) 1.910 uIu/ml Lyme Disease IgG Antibody NEG Lyme Disease IgM Antibody NEG Magnesium Level 2.0 mg/dl Triglycerides Level 145 mg/dl Cholesterol Level 169 mg/dl HDL Cholesterol 39 mg/dl LDL Cholesterol, Calculated 101 mg/dl VLDL Cholesterol, Calculated 29 mg/dl Cholesterol/HDL Ratio 4.3 Chemistry Specimen Hemolysis Test 06/26/16 13:55 Total Creatine Kinase 60 U/L Creatine Kinase MB 1.7 ng/ml Creatine Kinase MB Ratio 2.8 Troponin I 0.048 ng/ml Assessment and Plan chest pain with sl troponin elevation - have to treat as possible ACS. cardiology has initiated appropriate med management, pt stable. for [facility] tuesday. ----fortunately concerns on aflutter were actually EKG w significant artifact, and concerns on aortic stenosis likely due to hyperdynamic LV Gout--continue allopurinol 300 mg by mouth daily. Osteoarthritis--continue Celebrex 200 mg by mouth daily. Migraine headache--continue Fioricet 1 by mouth daily when necessary. DVT proph - heparin SQ
[2016-06-26] MEDS: HEPARIN SOD 5000 UNIT/0.5 ML CARP SQ SCH (20:35)
[2016-06-26] MEDS ORDERED: CARVEDILOL 12.5 MG TAB PO SCH (21:00)
[2016-06-27] VITALS (7 sets, daily range): BP systolic 122–180; BP diastolic 66–95; PULSE 66–99; TEMP 36.5–36.9; O2SAT 94–97
[2016-06-27 06:55] LABS: BASO % 0.3 %; BASO ABS # 0.03 K/uL (0-0.2); COMPLETE YES; EOS % 4.3 %; HEMATOCRIT 45.9 % (42-52); IG% 0.1 %; LYMPH % 24.9 %; LYMPH ABS # 2.27 K/uL (1.2-3.4); MEAN CELL VOLUME 90.5 fL (80-100); MEAN CORPUSCULAR HEMOGLOBIN 30.8 pg (25-34); MEAN PLATELET VOLUME 11.2 fL (7.4-10.4); MONO % 9.9 %; NEUT % 60.5 %; PLATELET COUNT 222 K/uL (130-400); RED BLOOD COUNT 5.07 M/uL (4.7-6.1); WHITE BLOOD COUNT 9.11 K/uL (4.8-10.8)
[2016-06-27 07:25] LABS: BUN/CREATININE RATIO 22.5 (10-20); CALCIUM 11.4 mg/dl (8.5-10.1); MAGNESIUM 1.9 mg/dl (1.8-2.4); POTASSIUM 4.1 mmol/L (3.5-5.1)
[2016-06-27] MEDS: CALCIUM 600MG + VIT D 400 IU TAB PO SCH ×2 (08:43→21:12)
[2016-06-27] MEDS: ALLOPURINOL 300 MG TAB PO SCH (08:43)
[2016-06-27] MEDS: CeleBREX 200 MG CAP PO SCH (08:43)
[2016-06-27] MEDS: ASPIRIN 81 MG ECTAB PO SCH (08:43)
--- NOTE | 2016-06-27 09:18 | CARDIOLOGY PROGRESS NOTE ---
DATE: 06/27/2016 TIME: 8:35 a.m. SUBJECTIVE: He states that he denies any further chest pain, shortness of breath. He denies syncope, near syncope, palpitations, or any other symptom. On telemetry; however, overnight, at approximately 3:17 a.m. he did appear to have some tachycardia. Several episodes appear to be sinus tachycardia. Cannot rule out a short episode of SVT; however. He states that he was in bed this period of time and was completely asymptomatic. OBJECTIVE: VITAL SIGNS: temperature 36.5 degrees, heart rate 68 beats per minute. Respiration rate 19, blood pressure 180/79 mmHg. Oxygen saturation 96% on room air. I's and O's negative 850 mL yesterday, weight is 73 kg. GENERAL: No acute distress. He is alert. NECK: No JVD. CARDIAC: No ventricular heave. Regular, normal S1, S2. 1/6 early peaking systolic ejection murmur best heard at the right upper sternal border. No rubs or gallops. LUNGS: Clear to auscultation bilaterally without wheezes, rales or rhonchi. ABDOMEN: Soft, nontender, nondistended. Normoactive bowel sounds. EXTREMITIES: No cyanosis or edema. PSYCHIATRIC: Affect appears appropriate. MEDICATIONS: Include aspirin 81 mg daily, carvedilol 12.5 mg p.o. b.i.d., heparin 5000 units subQ q. 12 hours. LABORATORY AND IMAGING DATA: White blood cell count 9.1, hemoglobin 15.6, platelets 222. Sodium 142, potassium 4.1, BUN 23, creatinine 1, magnesium 1.9. ECG was not done at this time. ECG will be ordered. Telemetry personally reviewed as noted above. Heart rates overall have trended upward with metoprolol being discontinued and carvedilol being initiated. Echocardiogram images personally reviewed. Final report demonstrated normal LV size with hyperdynamic systolic function. EF greater than 70%. No regional wall motion abnormalities. Severe LVH with asymmetric severe hypertrophy of the septal base measuring up to 1.9 cm. Type 1 diastolic dysfunction. Mild intracavitary LV peak gradient up to 13 mmHg. Sclerotic aortic valve without significant stenosis. Systolic anterior motion of the mitral leaflet. ASSESSMENT AND PLAN: 1. Chest pain: Could be secondary to severe left ventricular hypertrophy and hyperdynamic left ventricular with intracavitary gradient, which likely worsens with exertion versus ischemic heart disease. Cardiac catheterization planned for tomorrow. The risks and benefits have been discussed with him. No further chest pain. 2. Elevated troponin: As above, could be secondary to intracavitary gradient with severe left ventricular hypertrophy which likely worsens with exertion. Ischemic heart disease will be evaluated tomorrow with coronary angiography. 3. Left ventricular hypertrophy: There is concentric component but also an asymptomatic component involving the septal base. Cannot rule out hypertrophic cardiomyopathy. Also, could be from longstanding hypertension as his blood pressure has been elevated throughout this hospitalization. Carvedilol increased today to 25 mg twice daily. 4. Left ventricular outflow tract obstruction: He has a left ventricular intracavitary gradient likely above the left ventricular outflow tract obstruction level. He is asymptomatic currently, but it could have caused symptoms as noted above. Avoid potent vasodilators. Carvedilol increased to 25 mg twice daily. He did well on metoprolol was bradycardic in the 50s, but still quite hypertensive. Hopefully, carvedilol will do better job with his blood pressure and also allow for some heart rate. Would be okay with a heart rate in the 50s, which would actually increase diastolic-filling time. If he does well on carvedilol 25 mg twice daily and blood pressure still need to further control, would consider adding diltiazem. This will be revisited tomorrow. 5. Hypertension: As addressed above. Carvedilol increased today. 6. Sinus tachycardia versus supraventricular tachycardia: He may have had a brief episode of supraventricular tachycardia overnight. He also had some sinus tachycardia. Carvedilol increased as above. 7. 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 Plan as above. 8. Disposition: Cardiology will continue to follow. The patient's care has been discussed with Dr. Hartman of the hospitalist service.
[2016-06-27] MEDS: HEPARIN SOD 5000 UNIT/0.5 ML CARP SQ SCH ×2 (09:30→21:15)
[2016-06-27] MEDS: CARVEDILOL 25 MG TAB PO SCH ×2 (09:53→21:12)
--- NOTE | 2016-06-27 19:05 | Progress Note ---
Subjective Date of Service: Jun 27, 2016. Subjective Pt evaluation today including: conversation w/ patient, physical exam, chart review, lab review, conversation w/ [facility] consultant (cardiology), review of inpatient medication list Pain: no chest pain PO Intake: normal Voiding: no voiding problems tele stable overnight without any dysrhythmia he denies any exertional dyspnea feels good overall no chest pain at rest or with activity Problem List Medical Problems: (1) Elevated troponin Status: Acute (2) New onset atrial flutter Status: Acute (3) NSTEMI (non-ST elevated myocardial infarction) Status: Acute Review of Systems Respiratory: No dyspnea on exertion, No shortness of breath Cardiac: No PND, No chest pain, No edema, No orthopnea Abdomen: No pain Objective Vital Signs Date Time Temp Pulse Resp B/P Pulse Ox O2 Delivery O2 Flow Rate FiO2 06/27/16 15:30 Room Air 06/27/16 15:06 36.5 72 18 177/77 97 Room Air 06/27/16 12:32 Room Air 06/27/16 11:29 36.9 66 17 171/80 97 Room Air 06/27/16 07:46 36.5 68 19 180/79 96 Room Air 06/27/16 07:40 Room Air 06/27/16 04:09 36.8 69 18 151/74 96 Room Air 06/27/16 04:00 Room Air 06/26/16 23:30 Room Air 06/26/16 23:16 36.9 78 17 148/68 95 Room Air 06/26/16 20:30 66 169/72 06/26/16 20:00 95 Room Air 06/26/16 19:48 36.8 65 16 173/75 95 Room Air Physical Exam General Appearance: no apparent distress ENT: pharynx normal Neck: no JVD Respiratory/Chest: lungs clear, no respiratory distress, no accessory muscle use Cardiovascular: regular rate, rhythm, no gallop, + systolic murmur (2/6 LLSB) Abdomen: normal bowel sounds, non tender, soft, no organomegaly Extremities: no pedal edema, + pertinent finding (RUE and RLE atrophic vs the left arm/leg) Laboratory Results Last 24 Hours Test 06/27/16 06:17 White Blood Count 9.11 K/uL Red Blood Count 5.07 M/uL Hemoglobin 15.6 g/dL Hematocrit 45.9 % Mean Corpuscular Volume 90.5 fL Mean Corpuscular Hemoglobin 30.8 pg Mean Corpuscular Hemoglobin Concent 34.0 g/dl Platelet Count 222 K/uL Mean Platelet Volume 11.2 fL Neutrophils (%) (Auto) 60.5 % Lymphocytes (%) (Auto) 24.9 % Monocytes (%) (Auto) 9.9 % Eosinophils (%) (Auto) 4.3 % Basophils (%) (Auto) 0.3 % Neutrophils # (Auto) 5.51 K/uL Lymphocytes # (Auto) 2.27 K/uL Monocytes # (Auto) 0.90 K/uL Eosinophils # (Auto) 0.39 K/uL Basophils # (Auto) 0.03 K/uL RDW Standard Deviation 43.9 fL RDW Coefficient of Variation 13.4 % Immature Granulocyte % (Auto) 0.1 % Immature Granulocyte # (Auto) 0.01 K/uL Sodium Level 142 mmol/L Potassium Level 4.1 mmol/L Chloride Level 107 mmol/L Carbon Dioxide Level 26 mmol/L Anion Gap 9.0 mmol/L Blood Urea Nitrogen 23 mg/dl Creatinine 1.00 mg/dl Est Creatinine Clear Calc Drug Dose 63.9 ml/min Estimated GFR () 83.8 Estimated GFR (Non- 72.3 BUN/Creatinine Ratio 22.5 Random Glucose 98 mg/dl Calcium Level 11.4 mg/dl Magnesium Level 1.9 mg/dl Assessment and Plan 75yo male with: 1. recent chest pain with mildly elevated troponin levels - for cardiac cath in AM. Appreciate cardiology consultation. NPO after MN. 2. HTN - agree with titration of BB. 3. severe LVH with possible hypertrophic cardiomyopathy - continue BB, avoid preload/afterload reducers. 4. hypercalcemia - check phos level and intact PTH to exclude hyperparathyroidism; EMR shows hypercalcemia is chronic. 5. DVT proph - heparin BID. 6. gout - not in exacerbation - continue allopurinol. Discharge planning: home
[2016-06-28] VITALS (13 sets, daily range): BP systolic 117–180; BP diastolic 63–89; PULSE 61–79; TEMP 36.5–36.9; O2SAT 93–99
[2016-06-28 05:51] LABS: BASO % 0.2 %; BASO ABS # 0.02 K/uL (0-0.2); COMPLETE YES; EOS % 3.6 %; HEMATOCRIT 44.1 % (42-52); IG% 0.2 %; LYMPH % 28.5 %; LYMPH ABS # 2.58 K/uL (1.2-3.4); MEAN CELL VOLUME 90.4 fL (80-100); MEAN CORPUSCULAR HEMOGLOBIN 30.1 pg (25-34); MEAN CORPUSCULAR HGB CONC 33.3 g/dl (32-36); MEAN PLATELET VOLUME 11.2 fL (7.4-10.4); MONO % 10.5 %; PLATELET COUNT 218 K/uL (130-400); RED BLOOD COUNT 4.88 M/uL (4.7-6.1); WHITE BLOOD COUNT 9.06 K/uL (4.8-10.8)
[2016-06-28 06:26] LABS: BUN/CREATININE RATIO 25.2 (10-20); CALCIUM 11.9 mg/dl (8.5-10.1); CREATININE 1.1 mg/dl (0.60-1.40); POTASSIUM 4.1 mmol/L (3.5-5.1)
[2016-06-28 06:27] LABS: PHOSPHORUS 2.5 mg/dl (2.5-4.9)
[2016-06-28 06:28] LABS: MAGNESIUM 2.2 mg/dl (1.8-2.4)
[2016-06-28] MEDS: CARVEDILOL 25 MG TAB PO SCH ×2 (07:52→19:43)
[2016-06-28] MEDS: CeleBREX 200 MG CAP PO SCH (07:52)
[2016-06-28] MEDS: ASPIRIN 81 MG ECTAB PO SCH (07:52)
[2016-06-28] MEDS: ALLOPURINOL 300 MG TAB PO SCH (07:52)
[2016-06-28] MEDS: CALCIUM 600MG + VIT D 400 IU TAB PO SCH ×2 (07:52→19:43)
[2016-06-28] MEDS: HEPARIN SOD 5000 UNIT/0.5 ML CARP SQ SCH (07:56)
[2016-06-28] MEDS ORDERED: DILTIAZEM HCL 120 MG EXT REL CAP PO ONE (09:28)
--- NOTE | 2016-06-28 09:51 | CARDIOLOGY PROGRESS NOTE ---
DATE: 06/28/2016 SUBJECTIVE: Mr. Angeles feels well today. Denies chest pain, shortness of breath, syncope, near syncope, or palpitations. Telemetry does demonstrate intermittent bouts of sinus tachycardia. His heart rate on whole has been much higher on the carvedilol than it was on metoprolol succinate. Fortunately, his blood pressure has been better controlled as well. OBJECTIVE: VITAL SIGNS: Temperature 36.5 degrees, heart rate 65 beats per minute, respiratory rate 20, and blood pressure 148/77 mmHg; however, overnight, his blood pressure was mostly normotensive. Oxygen saturation 99% on room air. Weight 71.5 kg. GENERAL: No acute distress. He is alert and oriented. HEAD, EYES, EARS, NOSE AND THROAT: Anicteric sclerae. NECK: No JVD. CARDIAC EXAM: No ventricular heave, regular, normal S1 and S2, 1/6 early peaking systolic ejection murmur best heard at the right upper sternal border. No rubs or gallops. LUNGS: Relatively clear without wheezing, rales or rhonchi. ABDOMEN: Soft, nontender, and nondistended. Normoactive bowel sounds. EXTREMITIES: No cyanosis or pitting edema. No palpable cords. PSYCHIATRIC: Affect appears appropriate. MEDICATIONS: Include aspirin 81 mg daily, carvedilol 25 mg p.o. b.i.d., and Celebrex 200 mg daily. Telemetry personally reviewed as noted above. LABORATORY DATA: White blood cell count is 9.06, hemoglobin 14.7, and platelets 218. Sodium 144, potassium 4.1, BUN 28, creatinine 1.1, and magnesium 2.2. ASSESSMENT AND PLAN: 1. Chest pain: Could be secondary to severe left ventricular hypertrophy with hyperdynamic LV and intracavitary gradient/obstruction versus ischemic heart disease as the etiology. Cardiac catheterization planned for today. He is n.p.o. since midnight. He was introduced to Dr. Braxton, counter top maker, who will be performed the procedure. Dr. Braxton was updated of presentation and the patient care issues. 2. Elevated troponin: Could be secondary to severe left ventricular hypertrophy with intracavitary gradient versus ischemic heart disease. Plan as above. 3. Left ventricular hypertrophy: He does have severe concentric left ventricular hypertrophy as well as some asymmetric component. Blood pressure control important. Avoid significant preload or afterload reducers given his intracavitary gradient/obstruction. We will add diltiazem today for the negative inotropic effect and also negative chronotropic effect to increase diastolic filling time. Continue carvedilol. 4. Left ventricular outflow tract obstruction: He has more of a left ventricular intracavitary gradient/obstruction. It was more significant in his prior echo and less so this most recent echo. Would like to titrate beta blockers and calcium channel blockers as above. Metoprolol succinate was discontinued as he was significantly hypertensive and also bradycardia while on that. He is not tolerating carvedilol, but now having episodes of tachycardia and therefore diltiazem will be initiated. Avoid potent vasodilators. Avoid dehydration. 5. Hypertension: Blood pressure has improved with carvedilol. Starting diltiazem today. 6. Sinus tachycardia versus supraventricular tachycardia: He did appear to have a short episode of supraventricular tachycardia earlier this hospitalization, but is now having episodes of sinus tachycardia. Diltiazem will be initiated as above. Could always resume metoprolol succinate at some point as this was causing bradycardia without any tachycardia noted, but will continue carvedilol for now. 7. Mitral valve disorder: He has systolic anterior motion of the mitral leaflets. No significant regurgitation. 8. Disposition: Plan of care discussed with Dr. Hartman of hospital service and also with Dr. rBaxton, counter top maker. If he has no significant coronary artery disease and he is otherwise doing well, can go home on diltiazem and carvedilol with followup in cardiology office in the next 1-2 weeks. This appointment will be made for him by my office today. If he has ischemic heart disease and requires further intervention, this will be outlined by Dr. Braxton. [facility]
[2016-06-28] MEDS ORDERED: MIDAZOLAM HCL 1 MG/ML 2ML VIAL ONE (12:44)
[2016-06-28] MEDS ORDERED: HEPARIN SOD (PORCINE) 1000 UNIT/ML 10 ML VIAL ONE (12:44)
[2016-06-28] MEDS ORDERED: NiCARDipine HCL INJ 2.5 MG/ML 10 ML AMP ONE (12:44)
[2016-06-28] MEDS ORDERED: FENTANYL CITRATE INJ 50 MCG/1 ML 2 ML VIAL ONE (12:45)
[2016-06-28] MEDS ORDERED: NITROGLYCERIN/D5W 100MCG/ML 20ML SYR ONE (12:46)
--- NOTE | 2016-06-28 15:15 | Discharge Summary ---
Discharge Summary Admission Date: Jun 25, 2016 at 20:56 Discharge Date: Jun 28, 2016 Discharge Disposition: Acute care facility ([facility] ) Principal Diagnosis: chest pain with newly diagnosed coronary artery disease Problems/Secondary Diagnoses: 1. HTN 2. gout 3. hypercalcemia likely due to hyperparathyroidism (will need future outpatient work-up) 4. severe LVH with concern of possible hypertrophic cardiomyopathy 5. mild NSTEMI Immunizations: Have You Had Influenza Vaccine: No History of Tetanus Vaccine?: Unknown History of Pneumococcal: Yes Pneumococcal Date: Jul 10, 2009 History of Hepatitis B Vaccine: No Procedures: 1. echocardiogram: -- Conclusions -- * 1. Normal left ventricular size with hyperdynamic systolic function. EF > 70%. No regional wall motion abnormalities. Severe concentric left ventricular hypertrophy with asymmetric severe hypertrophy of the septal base, measuring up to 1.9 cm. Type 1 diastolic dysfunction. * 2. Mild intracavitary LV gradient up to 13mmHg. * 3. Aortic valve appears stenotic visually, but Doppler study suggests no significant stenosis. Trace aortic regurgitation. * 4. There is systolic anterior motion of the mitral valve. * 5. Compared to prior study on 12/25/2015, LV intracavitary gradient is now mild and was much more significant on prior study. There is no significant aortic stenosis on either study, based on Doppler studies. 2. diagnostic left heart catheterization - Cl Braxton MD; 06/28/16. Full report pending but by verbal communication showed left main disease. Consultations: cardiology - Gregory Norton MD / Cl Braxton MD Medication Reconciliation New Medications: Heparin Sod (Porcine) In D5w (Heparin Sodium/D5w) 1 Inj Inj 1 UNITS IV UD, #1 0 Refills Atorvastatin (Atorvastatin Calcium) 40 Mg Tab 80 MG PO QAM, #30 TAB 0 Refills Carvedilol (Carvedilol) 25 Mg Tab 25 MG PO BID, #60 TAB 0 Refills Diltiazem HCl (Taztia Xt) 120 Mg Capcr 120 MG PO QAM, #30 0 Refills Continued Medications: Allopurinol (Allopurinol) 300 Mg Tab 150 MG PO DAILY Aspirin (Aspirin Ec) 81 Mg Tab 81 MG PO DAILY Discontinued Medications: Acetamin/Butalbital/Caffeine (Fioricet) 1 Ea Tab 1 TAB PO UD PRN for Headache, TAB Celecoxib (CeleBREX) 200 Mg Cap 200 MG PO DAILY, CAP Metoprolol Succinate (Toprol Xl) 50 Mg Tabcr 50 MG PO BID, #30 TAB Discharge Exam Physical Exam: General Appearance: no apparent distress ENT: pharynx normal Neck: no JVD Respiratory/Chest: lungs clear, no respiratory distress, no accessory muscle use Cardiovascular: regular rate, rhythm, no gallop, normal peripheral pulses, + systolic murmur (2/6 early peaking murmur RUSB ) Abdomen / GI: normal bowel sounds, non tender, soft, no organomegaly Extremities: no pedal edema Neurologic/Psychiatric: alert Skin: + pertinent finding (left wrist - no hematoma surrounding recent left radial artery cath site ) Hospital Course HISTORY OF PRESENT ILLNESS: Mr. Angeles is a very pleasant 75-year-old gentleman with a history significant for hyperdynamic LV systolic function with intracavitary left ventricular gradient/obstruction, and hypertension. He was seen once greater than [address] Campo for cardiology, at which point discontinuation of COLLEEN inhibitor and increase in beta brittni was recommended. Presumably due to bradycardia, metoprolol was reduced back to prior dose, which was metoprolol succinate at 50 mg twice daily. He presented to the [facility] yesterday with chest discomfort. He states that for the past 1 month, while exerting himself outside in colder weather, he would develop a left-sided chest discomfort. This was described in the ER as a substernal burning and he described it to me as a sharp pain. It is nonradiating, but was accompanied by shortness of breath. There is no significant diaphoresis. It resolved within 15 minutes of rest. The symptoms tend to occur only while outside and while exerting himself in the colder weather. He does well in a warmer conditions and denies any chest discomfort at rest. He otherwise denies orthopnea, PND, syncope, near syncope, palpitations, shortness of breath at rest, edema, melena, hematochezia, hematuria, or other bleeding. He denies abdominal pain, nausea, vomiting, or diarrhea. He does not exercise on a regular basis, but remains quite active. HOSPITAL COURSE: The patient was admitted to telemetry and remained hemodynamically stable throughout his stay. Monitoring showed brief runs of sinus tachycardia but no dysrhythmia. He experienced no further chest pain, dyspnea, or other cardiopulmonary symptoms. He underwent echocardiogram showing the above results. Wall motion was normal. Serial troponins showed a peak troponin of 0.110. In light of his presenting symptoms as well as the mildly elevated troponin he underwent left heart catheterization on 06/28/[address] Cl Braxton. Full left hearth catheterization report is pending at time of this discharge summary but by report showed left main disease. Due to the newly discovered coronary artery disease a transfer to [facility] was recommended for CT surgery evaluation. Dr. Sylvia Roldan graciously accepted Mr. Angeles in transfer for ongoing care. At time of discharge the patient is taking a beta brittni, calcium channel brittni, statin agent, and aspirin. Preload and afterload reducers were not employed in light of his severe LVH and concern of a possible hypertrophic cardiomyopathy. Post-catheterization he was begun on heparin infusion (low dose). He had no complicating CHF while hospitalized. The only other problem that will need to be addressed following his stay at [facility] is that of hypercalcemia. Based upon reviewing old records it appears that this issue is chronic. Intact PTH level was 100 and phosphorus was borderline low at 2.5. These values are suggestive of hyperparathyroidism. Endocrinology follow-up is recommended. Current Inpatient Medications Medications (Trade) Dose Ordered Sig/Jazzy Route Start Time Stop Time Status Last Admin Dose Admin Acetaminophen/ Butalbital/ Caffeine (Fioricet Tab) 1 tab Q6H PRN PO 06/25/16 20:30 07/25/16 20:29 Allopurinol (Zyloprim Tab) 150 mg DAILY PO 06/26/16 09:00 07/26/16 08:59 06/28/16 07:52 150 MG Aspirin (Ecotrin Tab) 81 mg DAILY PO 06/26/16 09:00 07/26/16 08:59 06/28/16 07:52 81 MG Calcium/Vitamin D (Caltrate Plus Tab) 1 tab BID PO 06/25/16 21:00 07/25/16 20:59 06/28/16 07:52 1 TAB Acetaminophen (Tylenol Tab) 650 mg Q4H PRN PO 06/25/16 21:00 07/25/16 20:59 06/27/16 19:12 650 MG Zolpidem Tartrate (Ambien Tab) 5 mg HSZ PRN PO 06/25/16 21:00 07/25/16 20:59 Nitroglycerin (Nitrostat Tab) 0.4 mg UD PRN SL 06/25/16 21:00 07/25/16 20:59 Ondansetron HCl (Zofran Inj) 4 mg Q6H PRN IV 06/25/16 21:00 07/25/16 20:59 Metoprolol Tartrate 5 mg 5 mg Q4 PRN IV 06/25/16 22:45 07/25/16 22:44 Lorazepam/Syringe (Ativan Inj/ Syringe) 0.25 ml @ 1 mls/min HS PRN IV 06/26/16 00:30 07/26/16 00:29 Lorazepam (Ativan Inj) 0.25 mg HS PRN IV 06/26/16 00:30 07/26/16 00:29 06/27/16 21:35 0.25 MG Carvedilol (Coreg Tab) 25 mg BID PO 06/27/16 09:00 07/27/16 08:59 06/28/16 07:52 25 MG Diltiazem HCl (TIAzac CAP) 120 mg QAM PO 06/29/16 09:00 07/29/16 08:59 Atorvastatin Calcium (Lipitor Tab) 80 mg QAM PO 06/29/16 09:00 07/29/16 08:59 Heparin Sodium/ Dextrose 1 ea Q15M N/A 06/28/16 15:37 07/28/16 15:36 06/25/16 19:15 Red Blood Count 4.80, Mean Corpuscular Volume 90.2, Mean Corpuscular Hemoglobin 30.2, Mean Corpuscular Hemoglobin Concent 33.5, Mean Platelet Volume 10.6, Neutrophils (%) (Auto) 56.0, Lymphocytes (%) (Auto) 28.2, Monocytes (%) (Auto) 9.7, Eosinophils (%) (Auto) 5.4, Basophils (%) (Auto) 0.2, Neutrophils # (Auto) 4.75, Lymphocytes # (Auto) 2.39, Monocytes # (Auto) 0.82, Eosinophils # (Auto) 0.46, Basophils # (Auto) 0.02 06/26/16 04:35 Red Blood Count 4.54, Mean Corpuscular Volume 91.6, Mean Corpuscular Hemoglobin 30.8, Mean Corpuscular Hemoglobin Concent 33.7, Mean Platelet Volume 10.9, Neutrophils (%) (Auto) 51.4, Lymphocytes (%) (Auto) 31.8, Monocytes (%) (Auto) 10.0, Eosinophils (%) (Auto) 6.2, Basophils (%) (Auto) 0.4, Neutrophils # (Auto ) 4.38, Lymphocytes # (Auto) 2.71, Monocytes # (Auto) 0.85, Eosinophils # (Auto ) 0.53, Basophils # (Auto) 0.03 06/27/16 06:17 Red Blood Count 5.07, Mean Corpuscular Volume 90.5, Mean Corpuscular Hemoglobin 30.8, Mean Corpuscular Hemoglobin Concent 34.0, Mean Platelet Volume 11.2, Neutrophils (%) (Auto) 60.5, Lymphocytes (%) (Auto) 24.9, Monocytes (%) (Auto) 9.9, Eosinophils (%) (Auto) 4.3, Basophils (%) (Auto) 0.3, Neutrophils # (Auto) 5.51, Lymphocytes # (Auto) 2.27, Monocytes # (Auto) 0.90, Eosinophils # (Auto) 0.39, Basophils # (Auto) 0.03 06/28/16 05:20 Red Blood Count 4.88, Mean Corpuscular Volume 90.4, Mean Corpuscular Hemoglobin 30.1, Mean Corpuscular Hemoglobin Concent 33.3, Mean Platelet Volume 11.2, Neutrophils (%) (Auto) 57.0, Lymphocytes (%) (Auto) 28.5, Monocytes (%) (Auto) 10.5, Eosinophils (%) (Auto) 3.6, Basophils (%) (Auto) 0.2, Neutrophils # (Auto ) 5.16, Lymphocytes # (Auto) 2.58, Monocytes # (Auto) 0.95, Eosinophils # (Auto ) 0.33, Basophils # (Auto) 0.02 06/25/16 19:15 06/26/16 04:35 06/27/16 06:17 06/28/16 05:20 Test 06/25/16 19:15 06/25/16 19:24 06/25/16 20:33 12/31/16 04:35 White Blood Count 8.48 K/uL (4.8-10.8) 8.52 K/uL (4.8-10.8) Red Blood Count 4.80 M/uL (4.7-6.1) 4.54 M/uL (4.7-6.1) Hemoglobin 14.5 g/dL (14.0-18.0) 14.0 g/dL (14.0-18.0) Hematocrit 43.3 % (42-52) 41.6 % (42-52) Mean Corpuscular Volume 90.2 fL (80-100) 91.6 fL (80-100) Mean Corpuscular Hemoglobin 30.2 pg (25-34) 30.8 pg (25-34) Mean Corpuscular Hemoglobin Concent 33.5 g/dl (32-36) 33.7 g/dl (32-36) Platelet Count 229 K/uL (130-400) 194 K/uL (130-400) Mean Platelet Volume 10.6 fL (7.4-10.4) 10.9 fL (7.4-10.4) Neutrophils (%) (Auto) 56.0 % 51.4 % Lymphocytes (%) (Auto) 28.2 % 31.8 % Monocytes (%) (Auto) 9.7 % 10.0 % Eosinophils (%) (Auto) 5.4 % 6.2 % Basophils (%) (Auto) 0.2 % 0.4 % Neutrophils # (Auto) 4.75 K/uL (1.4-6.5) 4.38 K/uL (1.4-6.5) Lymphocytes # (Auto) 2.39 K/uL (1.2-3.4) 2.71 K/uL (1.2-3.4) Monocytes # (Auto) 0.82 K/uL (0.11-0.59) 0.85 K/uL (0.11-0.59) Eosinophils # (Auto) 0.46 K/uL (0-0.5) 0.53 K/uL (0-0.5) Basophils # (Auto) 0.02 K/uL (0-0.2) 0.03 K/uL (0-0.2) RDW Standard Deviation 44.2 fL (36.4-46.3) 44.7 fL (36.4-46.3) RDW Coefficient of Variation 13.4 % (11.5-14.5) 13.4 % (11.5-14.5) Immature Granulocyte % (Auto) 0.5 % 0.2 % Immature Granulocyte # (Auto) 0.04 K/uL (0.00-0.02) 0.02 K/uL (0.00-0.02) Anion Gap 9.0 mmol/L (3-11) 5.0 mmol/L (3-11) Est Creatinine Clear Calc Drug Dose 63.9 ml/min 59.0 ml/min Estimated GFR () 83.8 74.7 Estimated GFR (Non- 72.3 64.4 BUN/Creatinine Ratio 24.5 (10-20) 19.3 (10-20) Calcium Level 10.3 mg/dl (8.5-10.1) 10.6 mg/dl (8.5-10.1) Total Bilirubin 0.2 mg/dl (0.2-1) Aspartate Amino Transf (AST/SGOT) 24 U/L (15-37) Alanine Aminotransferase (ALT/SGPT) 35 U/L (12-78) Alkaline Phosphatase 101 U/L (45-117) Total Creatine Kinase 72 U/L (39-308) 61 U/L (39-308) 57 U/L (39-308) Creatine Kinase MB 2.3 ng/ml (0.5-3.6) 2.1 ng/ml (0.5-3.6) 1.8 ng/ml (0.5-3.6) Creatine Kinase MB Ratio 3.2 (0-3.0) 3.4 (0-3.0) 3.2 (0-3.0) Total Protein 7.2 gm/dl (6.4-8.2) Albumin 3.8 gm/dl (3.4-5.0) Globulin 3.4 gm/dl (2.5-4.0) Albumin/Globulin Ratio 1.1 (0.9-2) Bedside Troponin I 0.110 ng/ml (0-0.045) Prothrombin Time 10.4 SECONDS (9.0-12.0) Prothromb Time International Ratio 1.0 (0.9-1.1) Activated Partial Thromboplast Time 25.9 SECONDS (21.0-31.0) Partial Thromboplastin Ratio 1.0 Troponin I 0.096 ng/ml (0-0.045) 0.067 ng/ml (0-0.045) Thyroid Stimulating Hormone (TSH) 1.910 uIu/ml (0.300-4.500) Lyme Disease IgG Antibody NEG (NEG) Lyme Disease IgM Antibody NEG (NEG) Magnesium Level 2.0 mg/dl (1.8-2.4) Triglycerides Level 145 mg/dl (0-150) Cholesterol Level 169 mg/dl (0-200) HDL Cholesterol 39 mg/dl LDL Cholesterol, Calculated 101 mg/dl VLDL Cholesterol, Calculated 29 mg/dl Cholesterol/HDL Ratio 4.3 Chemistry Specimen Hemolysis Test 06/26/16 13:55 06/27/16 06:17 06/28/16 05:20 06/28/16 15:51 Total Creatine Kinase 60 U/L (39-308) Creatine Kinase MB 1.7 ng/ml (0.5-3.6) Creatine Kinase MB Ratio 2.8 (0-3.0) Troponin I 0.048 ng/ml (0-0.045) White Blood Count 9.11 K/uL (4.8-10.8) 9.06 K/uL (4.8-10.8) Red Blood Count 5.07 M/uL (4.7-6.1) 4.88 M/uL (4.7-6.1) Hemoglobin 15.6 g/dL (14.0-18.0) 14.7 g/dL (14.0-18.0) Hematocrit 45.9 % (42-52) 44.1 % (42-52) Mean Corpuscular Volume 90.5 fL (80-100) 90.4 fL (80-100) Mean Corpuscular Hemoglobin 30.8 pg (25-34) 30.1 pg (25-34) Mean Corpuscular Hemoglobin Concent 34.0 g/dl (32-36) 33.3 g/dl (32-36) Platelet Count 222 K/uL (130-400) 218 K/uL (130-400) Mean Platelet Volume 11.2 fL (7.4-10.4) 11.2 fL (7.4-10.4) Neutrophils (%) (Auto) 60.5 % 57.0 % Lymphocytes (%) (Auto) 24.9 % 28.5 % Monocytes (%) (Auto) 9.9 % 10.5 % Eosinophils (%) (Auto) 4.3 % 3.6 % Basophils (%) (Auto) 0.3 % 0.2 % Neutrophils # (Auto) 5.51 K/uL (1.4-6.5) 5.16 K/uL (1.4-6.5) Lymphocytes # (Auto) 2.27 K/uL (1.2-3.4) 2.58 K/uL (1.2-3.4) Monocytes # (Auto) 0.90 K/uL (0.11-0.59) 0.95 K/uL (0.11-0.59) Eosinophils # (Auto) 0.39 K/uL (0-0.5) 0.33 K/uL (0-0.5) Basophils # (Auto) 0.03 K/uL (0-0.2) 0.02 K/uL (0-0.2) RDW Standard Deviation 43.9 fL (36.4-46.3) 43.7 fL (36.4-46.3) RDW Coefficient of Variation 13.4 % (11.5-14.5) 13.4 % (11.5-14.5) Immature Granulocyte % (Auto) 0.1 % 0.2 % Immature Granulocyte # (Auto) 0.01 K/uL (0.00-0.02) 0.02 K/uL (0.00-0.02) Anion Gap 9.0 mmol/L (3-11) 9.0 mmol/L (3-11) Est Creatinine Clear Calc Drug Dose 63.9 ml/min 56.9 ml/min Estimated GFR () 83.8 74.7 Estimated GFR (Non- 72.3 64.4 BUN/Creatinine Ratio 22.5 (10-20) 25.2 (10-20) Calcium Level 11.4 mg/dl (8.5-10.1) 11.9 mg/dl (8.5-10.1) Magnesium Level 1.9 mg/dl (1.8-2.4) 2.2 mg/dl (1.8-2.4) Phosphorus Level 2.5 mg/dl (2.5-4.9) Parathyroid Hormone (Intact) 100.3 pg/mL (11.1-79.5) Total Time Spent: Greater than 30 minutes This includes examination of the patient, discharge planning, medication reconciliation, and communication with other providers. Discharge Instructions Please refer to the electronic Patient Visit Report (Discharge Instructions) for additional information. Follow-Up to be determined once discharged from [facility] Additional Copies To Eyal Monroe M.D.
[2016-06-28] MEDS ORDERED: HEPARIN IV LOW DOSE NO BOLUS SCH (15:37)
[2016-06-28] MEDS ORDERED: ATORVASTATIN 40 MG TAB PO ONE (15:38)
[2016-06-28] MEDS ORDERED: CRG25 PO (15:41)
[2016-06-28] MEDS ORDERED: TZCSR120 PO (15:41)
[2016-06-28] MEDS ORDERED: HEPA IV (15:41)
[2016-06-28] MEDS ORDERED: LPT40 PO (15:41)
--- NOTE | 2016-06-28 15:45 | Discharge Instructions ---
Discharge Instructions Admission Reason for Admission: chest pain Discharge Discharge Diagnosis / Problem: 1. chest pain 2. newly diagnosed coronary artery disease Discharge Goals Goal(s): Learn about illness, Diagnostic testing, Therapeutic intervention Activity Recommendations Activity Limitations: as noted below ACTIVITY RECOMMENDATIONS following your heart catheterization: Excess manipulation of the LEFT wrist should be avoided for the next 24-48 hours. * No lifting over 2 pounds (approximately a 1/2 gallon of milk) with the utilized arm for 24 hours. * No strenuous activity for 3 days. * Keep the site of the procedure covered with a bandage for 24 hours. *You may shower the day after the procedure. Do not take a tub bath or submerge the puncture site in water for the next 3 days. *Do not operate any motorized equipment for 3 days. SPECIAL CARE INSTRUCTIONS: The site may be slightly bruised and sore following your procedure. 1. Redness/inflammation, swelling, chills, or fever, or colored drainage at procedure site within 3-7 days after your procedure. 2. Coldness, discoloration, ongoing numbness, severe pain, or swelling. Expect mild tingling of hand and tenderness at the puncture site for up to three days. If this persists beyond three days, or other symptoms develop, notify the Dr. who performed your procedure. BLEEDING: If the procedure site on your wrist begins to bleed, do not panic 1. Place 1 or 2 fingers firmly just slightly above the insertion site to stop the bleeding. You may be able to feel your pulse as you hold pressure. 2. Lift your finger after 5 minutes to see if the bleeding has stopped. 3. Once the bleeding has stopped, gently wipe the wrist area clean with a bandage. * If the bleeding from your wrist does not stop after 10 minutes, or if there is a large amount of bleeding or spurting, call 911 (do not drive yourself to the hospital). SKIN IRRITATION: * You may experience some redness and/or swelling in the area where radiation was administered. Instructions / Follow-Up Instructions / Follow-Up Home Care: * Take your medications exactly as directed. Don't skip doses. * Remember that recovery after a heart attack takes time. Plan to rest for at lease 4-8 weeks while you recover. Then return to normal activity when your doctor says it's okay. * Ask your doctor about joining a heart rehabilitation program. * Tell your doctor if you are feeling depressed. Feelings of sadness are common after a heart attack, but it is important that you speak to someone if you are feeling overwhelmed by these feelings. * If you are having chest pain, call 911 for an ambulance. Do NOT drive yourself to the hospital. * Ask your family members to learn CPR. * Learn to take your own blood pressure and pulse. Keep a record of your results. Ask your doctor when you should seek emergency medical attention. He or she will tell you which blood pressure reading is dangerous. Lifestyle Changes: * Maintain a healthy weight. Get help to lose any extra pounds. * Cut back on salt. * Limit canned, dried, packaged, and fast foods. * Don't add salt to your food. * Season foods with herbs instead of salt when you cook. * Break the smoking habit. Enroll in a stop-smoking program to improve your chances of success. * Limit fatty foods. * Check your lipid levels regularly. (Your doctor can show you how to do this.) * Build up your activity according to your doctor's recommendation. * Ask your doctor when it's okay to resume sexual activity. * Tell your doctor about any erectile dysfunction (ED) medication you are taking. Some ED medications are not safe if you take certain heart medications. * Try to manage stress. Other instructions from Dr. Hartman - You have had mildly elevated calcium levels in your blood for several years based on looking at current and past test results. You may have a condition called "hyperparathyroidism." This will need additional work-up and testing after your stay at [facility]. Your family doctor can refer you to an credentialing manager for this problem. Current Hospital Diet Patient's current hospital diet: AHA Diet (Heart Healthy) Discharge Diet Recommended Diet: AHA Diet (Heart Healthy) Procedures Procedures Performed: 1. echocardiogram showing left ventricular hypertrophy (thickening of the muscle of the heart) 2. heart catheterization showing coronary artery disease (blockages of the arteries of the heart) Pending Studies Studies pending at discharge: no Laboratory Results Lipid Panel Test 12/31/16 04:35 Range/Units Triglycerides Level 145 0-150 mg/dl Cholesterol Level 169 0-200 mg/dl HDL Cholesterol 39 mg/dl Cholesterol/HDL Ratio 4.3 LDL Cholesterol, Calculated 101 mg/dl Medical Emergencies . Who to Call and When: Medical Emergencies: If at any time you feel your situation is an emergency, please call 911 immediately. Call 911 immediately or go to your nearest Emergency Room if you experience any of the following: Warning Signs and Symptoms of a Heart Attack * Chest pain that is not relieved by medication * Shortness of breath . Non-Emergent Contact Non-Emergency issues call your: Actuarial Intern Call Non-Emergent contact if: temperature is above 100.5, your pain is worsening, your pain is unusual for you, your pain is concerning you, wound has increased drainage, wound has increased redness, wound has increased pain . . "Provider Documentation" section prepared by Edison Hartman. AMI Core Measures Reason no ASA as I/P: Treatment provided - N/A Reason no ASA at D/C: Treatment provided - N/A Reason no statin as I/P: Treatment provided - N/A Reason no statin at D/C: Treatment provided - N/A VTE Core Measure Inpt VTE Proph given/why not?: Other Anticoagulation, SCD's
[2016-06-28 16:13] LABS: BASO % 0.4 %; BASO ABS # 0.03 K/uL (0-0.2); EOS % 3.8 %; HEMATOCRIT 44.7 % (42-52); IG% 0.3 %; LYMPH % 28.2 %; LYMPH ABS # 2.25 K/uL (1.2-3.4); MEAN CELL VOLUME 90.3 fL (80-100); MEAN CORPUSCULAR HEMOGLOBIN 30.9 pg (25-34); MEAN PLATELET VOLUME 10.7 fL (7.4-10.4); MONO % 8.3 %; PLATELET COUNT 213 K/uL (130-400); RED BLOOD COUNT 4.95 M/uL (4.7-6.1); WHITE BLOOD COUNT 7.97 K/uL (4.8-10.8)
[2016-06-28] MEDS ORDERED: HEPARIN 25,000 UNIT/500ML D5W 500 ML IV PRN (16:15)
[2016-06-28 16:22] LABS: COMPLETE YES; MEAN CORPUSCULAR HGB CONC 34.2 g/dl (32-36)
[2016-06-28 16:24] LABS: PROTHROMBIN TIME (PATIENT) 10.7 SECONDS (9.0-12.0)
--- NOTE | 2016-06-28 22:00 | Procedure Note ---
Pre-Mod Sedation Assessment General Date of Moderate Sedation: Jun 28, 2016. Vital Signs: Vital Signs Past 12 Hours Date Time Temp Pulse Resp B/P Pulse Ox O2 Delivery O2 Flow Rate FiO2 06/28/16 19:27 36.9 67 18 154/63 93 Room Air 06/28/16 19:00 Room Air 06/28/16 17:46 70 19 153/79 99 Room Air 06/28/16 16:46 68 19 151/74 99 Room Air 06/28/16 16:15 75 19 165/74 96 Room Air 06/28/16 16:00 Room Air 06/28/16 15:30 67 19 176/71 96 Room Air 06/28/16 15:15 36.6 61 18 166/75 98 Room Air 06/28/16 15:00 36.6 75 18 180/78 98 Room Air 06/28/16 14:46 36.7 68 18 150/89 99 Room Air 06/28/16 14:15 77 16 155/97 95 Room Air 06/28/16 14:10 Room Air 06/28/16 14:05 Room Air 06/28/16 14:00 72 16 151/81 96 Room Air 06/28/16 12:29 36.6 66 16 137/65 94 Room Air 06/28/16 12:00 Room Air 06/28/16 12:00 36.6 66 16 137/65 94 Room Air Review Cardiovascular: regular rate, rhythm, no gallop, normal peripheral pulses, + systolic murmur (2/6 early peaking murmur RUSB ) Abdomen: normal bowel sounds, non tender, soft, no organomegaly Lungs: lungs clear, no respiratory distress, no accessory muscle use Pre-Sedation Airway Assessment Oral Cavity: Dentures Short Thick Neck: Yes Hx of Sleep Apnea: No Smoking Status: Never Smoker Mallampati Classification: Class II ASA Classification: Class II Procedure Planning Contraindications-for Mod Sed: None Yes Notes The planned sedation has been discussed with the patient and consent obtained. I have identified the patient, determined the appropriateness of sedation and have assessed the patient immediately prior to the procedure. All medicine(s) and interventions are by my order.
--- NOTE | 2016-06-28 22:05 | Procedure Note ---
Post-Mod Sedation Assessment General Date of Moderate Sedation Jun 28, 2016. Vital Signs: Vital Signs Past 12 Hours Date Time Temp Pulse Resp B/P Pulse Ox O2 Delivery O2 Flow Rate FiO2 06/28/16 19:27 36.9 67 18 154/63 93 Room Air 06/28/16 19:00 Room Air 06/28/16 17:46 70 19 153/79 99 Room Air 06/28/16 16:46 68 19 151/74 99 Room Air 06/28/16 16:15 75 19 165/74 96 Room Air 06/28/16 16:00 Room Air 06/28/16 15:30 67 19 176/71 96 Room Air 06/28/16 15:15 36.6 61 18 166/75 98 Room Air 06/28/16 15:00 36.6 75 18 180/78 98 Room Air 06/28/16 14:46 36.7 68 18 150/89 99 Room Air 06/28/16 14:15 77 16 155/97 95 Room Air 06/28/16 14:10 Room Air 06/28/16 14:05 Room Air 06/28/16 14:00 72 16 151/81 96 Room Air 06/28/16 12:29 36.6 66 16 137/65 94 Room Air 06/28/16 12:00 Room Air 06/28/16 12:00 36.6 66 16 137/65 94 Room Air Review - Discharge Criteria Vital Signs Stable: Yes Alert/Oriented/Conversant: Yes Returned to Baseline Mental St: Yes Nausea Absent/Minimal: Yes Pain/Discomfort/Absent/Minimal: Yes Normal/Baseline Respirations: Yes Active Bleeding?: No Pt Received D/C Instructions: No Prescriptions Given: None Specific Proced. D/C Criteria Distal Pulses Present (Cardiac: Yes Groin site assessed-Card Cath: N/A Voided Prior To Discharge: N/A Discharged Patients Adult Escort/Transportation: Yes
--- NOTE | 2016-06-28 22:39 | Cardiac Catheterization ---
Procedure Note Procedure Date Jun 28, 2016. Pre-Procedure Diagnosis Non STEMI AUC Score 8 Post-Procedure Diagnosis Severe CAD, Normal Intracardiac Pressures Procedure(s) Performed Coronary Angiography, Left Heart Cath [employer] Helper Dr. Braxton Strategy Specialist(s) Celena Estimated Blood Loss 20 Medication(s) Fentanyl, Heparin, Nitroglycerin, Versed, Lidocaine 1% Summary of Findings Indication: NSTEMI Access: 6Fr Slender Left Radial Artery Catheters: JL 3.5, JR 4, Multipurpose Findings: LM - Diffuse severe disease, 70% ostial with pressure dampening with catheter engagement. LAD - 95% ostial stenosis, 40% proximal, 50-60% calcified mid segment, distal luminal irregularities. Circumflex - 30% ostial, 40-50% mid segment disease, distal circumflex with mild disease. Large OM2 with 40-50% mid segment stenosis RCA - Dominant, 30% proximal stenosis, mild mid and distal segment disease. Long sequential 80% lesions in proximal, mid PDA. LVEDP - 12 No significant intracavitary gradient noted with endhole catheter Arterial Closure: TR Band Summary: 1. Severe left main and 2 vessel coronary artery disease - Diffuse 70% left main - 95% ostial LAD - 80% R-PDA disease 2. No significant intracardiac gradient Recommendations: CT surgery consult for CABG Discussed with CT surgery at [facility]. Will transfer patient by ground this evening. Recommend starting heparin drip Continue ASA, statin and Carvedilol Hemodynamics Rest Ao: 88/45/62 Final Ao: 137/91 LV: 143/12 Recommendations CABG Specimens None Radiation Exposure (mGy) 1565 Contrast (mls) 75 Fluids (cc crystalloids) 92 Drains None Anesthesia Moderate Procedural Complication(s) None Disposition PCU ACC Data Cardiac Status Clinical evaluation leading to the procedure CAD Presntation: Non STEMI Anginal Classification: CCS IV Heart Failure: No, NYHA Class: CCS I Cardiogenic Shock w/in 24Hrs: No Cardiac Arrest w/in 24Hrs: No Imaging studies past 6 months: Yes Stress studies past 6 months: No Standard Exercise Stress Test: No Stress Echocardiogram: No Stress Testing w/SPECT MPI: No Cardiac CTA: No Coronary Anatomy Dominant: Right Left Main (% Stenosis): Ostial LAD (% Stenosis): Ostial, Mid (55) Circumflex (% Stenosis): Mid (45) OM2 (% Stenosis): Mid RCA (% Stenosis): Proximal R PDA (% Stenosis): Proximal Diagnostic Physician's Name: Cl Braxton MD Status: Elective Closure Device Percutaneous Entry Location: Radial Closure Device: Radial Band Recommendations: CABG Intraprocedure Events Significant Dissection: No Perforation: No
[2016-06-29] MEDS ORDERED: ATORVASTATIN 40 MG TAB PO SCH (09:00)
[2016-06-29] MEDS ORDERED: DILTIAZEM HCL 120 MG EXT REL CAP PO SCH (09:00)
== END 2016-06-28 20:04 | disposition short-term general hospital (02) | DRG 281 ==
LOC: ENRESERVTM → ENRESERVDT → C.EDB 18:03 → C.2T 20:56
PROVIDERS: ADMIT Hospitalist; ATTEND Internal Medicine
PROC: 4A023N7 Measurement of Cardiac Sampling and Pressure, Left Heart, Percutaneous Approach (ICD-10-PCS; principal; 2016-06-28 13:11)
PROC: B2111ZZ Fluoroscopy of Multiple Coronary Arteries using Low Osmolar Contrast (ICD-10-PCS; principal; 2016-06-28 13:11)
DX: I21.4 Non-ST elevation (NSTEMI) myocardial infarction (principal); I48.92 Unspecified atrial flutter; M41.9 Scoliosis, unspecified; Z83.3 Family history of diabetes mellitus; Z82.49 Family history of ischemic heart disease and other diseases of the circulatory system; M10.9 Gout, unspecified; M19.90 Unspecified osteoarthritis, unspecified site; G43.909 Migraine, unspecified, not intractable, without status migrainosus; I25.10 Atherosclerotic heart disease of native coronary artery without angina pectoris; I10 Essential (primary) hypertension; E83.52 Hypercalcemia; E21.3 Hyperparathyroidism, unspecified; I35.2 Nonrheumatic aortic (valve) stenosis with insufficiency

== ENCOUNTER → 2016-08-10 | Outpatient (CLI) | payer BC ==
[~2016-08-10] MED LIST changes: -CALC600T9 PO; -CIPR-255 PO; +CRG25 PO; +HEPA IV; +LPT40 PO; +METO-217 PO; -METO-479 PO; +TZCSR120 PO
[2016-08-10 12:12] LABS: HEMATOCRIT 42.4 % (42-52); MEAN CELL VOLUME 89.3 fL (80-100); MEAN CORPUSCULAR HEMOGLOBIN 29.7 pg (25-34); MEAN CORPUSCULAR HGB CONC 33.3 g/dl (32-36); MEAN PLATELET VOLUME 11.2 fL (7.4-10.4); PLATELET COUNT 370 K/uL (130-400); RED BLOOD COUNT 4.75 M/uL (4.7-6.1); WHITE BLOOD COUNT 9.33 K/uL (4.8-10.8)
[2016-08-10 12:46] LABS: ALB/GLOB RATIO 0.9 (0.9-2); ALKALINE PHOSPHATASE 126 U/L (45-117); ALT/SGPT 27 U/L (12-78); AST/SGOT 17 U/L (15-37); BLOOD UREA NITROGEN 20 mg/dl (7-18); CALCIUM 12.4 mg/dl (8.5-10.1); CARBON DIOXIDE 29 mmol/L (21-32); CHLORIDE 101 mmol/L (98-107); GLUCOSE 118 mg/dl (70-99); MAGNESIUM 2.1 mg/dl (1.8-2.4); POTASSIUM 4.1 mmol/L (3.5-5.1); SODIUM 138 mmol/L (136-145)
== END | disposition home or self-care (01) ==
LOC: C.LAB1850 10:44
PROVIDERS: ATTEND Internal Medicine Interventional Cardiology
DX: I25.10 Atherosclerotic heart disease of native coronary artery without angina pectoris (principal); R53.83 Other fatigue; R63.4 Abnormal weight loss; Z95.1 Presence of aortocoronary bypass graft

== ENCOUNTER → 2016-09-14 | Outpatient (CLI) | payer BC ==
[2016-09-14 17:38] LABS: BASO % 0.4 %; BASO ABS # 0.03 K/uL (0-0.2); COMPLETE YES; EOS % 4.1 %; HEMATOCRIT 39.1 % (42-52); IG% 0.3 %; LYMPH % 22.3 %; LYMPH ABS # 1.63 K/uL (1.2-3.4); MEAN CELL VOLUME 91.8 fL (80-100); MEAN CORPUSCULAR HEMOGLOBIN 29.3 pg (25-34); MEAN PLATELET VOLUME 11.2 fL (7.4-10.4); MONO % 12.3 %; NEUT % 60.6 %; PLATELET COUNT 267 K/uL (130-400); RED BLOOD COUNT 4.26 M/uL (4.7-6.1); WHITE BLOOD COUNT 7.32 K/uL (4.8-10.8)
[2016-09-14 17:46] LABS: BLOOD UREA NITROGEN 18 mg/dl (7-18); BUN/CREATININE RATIO 18.8 (10-20); CALCIUM 9.2 mg/dl (8.5-10.1); CARBON DIOXIDE 30 mmol/L (21-32); CHLORIDE 105 mmol/L (98-107); CREATININE 0.97 mg/dl (0.60-1.40); GLUCOSE 84 mg/dl (70-99); POTASSIUM 4.3 mmol/L (3.5-5.1); SODIUM 141 mmol/L (136-145)
[2016-09-15 06:27] LABS: ESTIMATED AVERAGE GLUCOSE 120 mg/dl; HA1C FLAG Normal (Normal)
--- NOTE | 2016-10-07 09:33 | CODING QUERY MEDICAL NECESSITY ---
SUPPORTING DIAGNOSIS NEEDED Dr. Haile, A supporting diagnosis is required for the test/procedure performed on this patient in order for us to be reimbursed by the patient's insurance. Please provide a supporting diagnosis for the following test/procedure listed below next to the test name along with your signature. *If there is no additional diagnosis for this patient that would support the following test/procedure please document that below next to the test/procedure. Test(s)/Procedure(s) that require a supporting diagnosis: * 35873 GLYCATED HEMOGLOBIN DIAGNOSIS: DATE OF SERVICE: 09/14/16 Provider Signature: Date: Thank you Ranjit Rossi [facility] Information Management Once completed, please kindly fax back to [phone] For questions please call [phone]
== END | disposition home or self-care (01) ==
LOC: C.LABBFT 14:58
PROVIDERS: ATTEND Internal Medicine Endocrinology, Diabetes & Metabolism
DX: E83.52 Hypercalcemia (principal); I10 Essential (primary) hypertension; R73.03 Prediabetes

== ENCOUNTER → 2016-11-01 | Outpatient (CLI) | payer BC | END | disposition home or self-care (01) | LOC: C.MAMM 09:46 | PROVIDERS: ATTEND Internal Medicine Endocrinology, Diabetes & Metabolism | DX: E21.0 Primary hyperparathyroidism (principal) ==

== ENCOUNTER → 2016-11-29 | Outpatient (CLI) | payer BC ==
[2016-11-29 18:05] LABS: CALCIUM 11.2 mg/dl (8.5-10.1)
[2016-12-01 17:58] LABS: ALBUMIN 3.9 G/DL (3.8-4.8); GAMMA GLOBULIN 1.1 G/DL (0.8-1.7); TOTAL PROTEIN 6.9 G/DL (6.2-8.3)
== END ==
LOC: C.LABBFT 12:10
PROVIDERS: ATTEND Internal Medicine Endocrinology, Diabetes & Metabolism
DX: E83.52 Hypercalcemia (principal)

== ENCOUNTER → 2016-12-02 | Outpatient (CLI) | payer BC ==
[2016-12-02 14:50] LABS: CALCIUM URINE 15.8 mg/dl
== END | disposition home or self-care (01) ==
LOC: C.LABSPEC 12:15
PROVIDERS: ATTEND Internal Medicine Endocrinology, Diabetes & Metabolism
DX: E21.0 Primary hyperparathyroidism (principal)

== ENCOUNTER → 2016-12-09 | Outpatient (CLI) | payer BC ==
[2016-12-09 12:50] LABS: ALT/SGPT 22 U/L (12-78); AST/SGOT 12 U/L (15-37); CALCIUM 8.8 mg/dl (8.5-10.1)
[2016-12-09 12:53] LABS: CHOLESTEROL 90 mg/dl (0-200); CHOLESTEROL/HDL RATIO 2.4; HDL CHOLESTEROL 38 mg/dl; LDL CHOLESTEROL CALCULATED 39 mg/dl; TRIGLYCERIDES 64 mg/dl (0-150); VERY LOW DENSITY LIPOPROT CALC 13 mg/dl
== END | disposition home or self-care (01) ==
LOC: C.LABBFT 09:51
PROVIDERS: ATTEND Internal Medicine Endocrinology, Diabetes & Metabolism
DX: I25.10 Atherosclerotic heart disease of native coronary artery without angina pectoris (principal); M81.0 Age-related osteoporosis without current pathological fracture

== ENCOUNTER → 2016-12-16 | Day surgery (SDC) | payer BC ==
[~2016-12-16] VITALS: Ht 179.1 cm; Wt 73.0 kg
[~2016-12-16] MED LIST changes: +ZOLEDRONIC ACID INJ 5 MG in EMPTY BAG 0 ML IV SCH
[2016-12-16 11:52] VITALS: BP 152/68; PULSE 63; TEMP 36.6; O2SAT 96; Ht 179.1 cm; Wt 73.0 kg
== END | disposition home or self-care (01) ==
LOC: C.MTU 11:30
PROVIDERS: ATTEND Internal Medicine Endocrinology, Diabetes & Metabolism
DX: M81.0 Age-related osteoporosis without current pathological fracture (principal)

== ENCOUNTER → 2016-12-20 | Outpatient (CLI) | payer BC ==
[~2016-12-20] MED LIST changes: -HEPA IV; -LPT40 PO; -ZOLEDRONIC ACID INJ 5 MG in EMPTY BAG 0 ML IV SCH
== END | disposition home or self-care (01) ==
LOC: C.LABBFT 08:54
PROVIDERS: ATTEND Internal Medicine Endocrinology, Diabetes & Metabolism
DX: M81.0 Age-related osteoporosis without current pathological fracture (principal)

== ENCOUNTER → 2016-12-27 | Outpatient (CLI) | payer BC ==
--- NOTE | 2016-12-27 19:42 | DIAGNOSTIC IMAGING REPORT ---
NUCLEAR MEDICINE PARATHYROID IMAGING CLINICAL HISTORY: Hypercalcemia. Primary hyperparathyroidism. COMPARISON STUDY: No previous studies for comparison. TECHNIQUE: 21.1 mCi of technetium 99m Cardiolite was injected IV at 3:00 PM on December 27, 2016. Planar and SPECT imaging was performed 15 minutes and 3 hours following injection. FINDINGS: The delayed images demonstrate a small focus of radiotracer retention that projects over the mid aspect of the left thyroid lobe. No additional areas of radiotracer retention are identified on this exam. Uptake on the early images appear symmetric. There are no areas of additional abnormal radiotracer accumulation. IMPRESSION: Small focus of radiotracer retention on delayed images that projects over the midpole of the left thyroid lobe. While not definitive, this raises the possibility of a left superior parathyroid adenoma. Electronically signed by: Joseph Jenkins M.D. 12/27/2016 7:40 PM Dictated Date/Time: 12/27/2016 7:09 PM
== END | disposition home or self-care (01) ==
LOC: C.NUCL 14:48
PROVIDERS: ATTEND Internal Medicine Endocrinology, Diabetes & Metabolism
DX: E21.0 Primary hyperparathyroidism (principal); E83.52 Hypercalcemia

== ENCOUNTER → 2017-01-17 | Outpatient (CLI) | payer BC | END | disposition home or self-care (01) | LOC: C.LABBFT 09:21 | PROVIDERS: ATTEND Internal Medicine Endocrinology, Diabetes & Metabolism | DX: E83.52 Hypercalcemia (principal) ==

== ENCOUNTER → 2017-04-04 | Outpatient (CLI) | payer BC ==
[2017-04-04 13:16] LABS: CALCIUM 9.3 mg/dl (8.5-10.1)
== END | disposition home or self-care (01) ==
LOC: C.LABBFT 09:49
PROVIDERS: ATTEND Internal Medicine Endocrinology, Diabetes & Metabolism
DX: E21.0 Primary hyperparathyroidism (principal)

== ENCOUNTER → 2017-09-22 | Outpatient (CLI) | payer BC ==
[2017-09-22 12:50] LABS: BLOOD UREA NITROGEN 24 mg/dl (7-18); CALCIUM 9.2 mg/dl (8.5-10.1); CARBON DIOXIDE 30 mmol/L (21-32); CREATININE 1.14 mg/dl (0.60-1.40); GLUCOSE 93 mg/dl (70-99); SODIUM 140 mmol/L (136-145)
== END | disposition home or self-care (01) ==
LOC: C.LABBFT 09:09
PROVIDERS: ATTEND Internal Medicine Interventional Cardiology
DX: I10 Essential (primary) hypertension (principal)

== ENCOUNTER 2020-03-20 14:02 | Inpatient (IN) ==
[2020-03-20] MEDS ORDERED: ASPIRIN CHEW 324 MG PO STA (14:36)
[2020-03-20 14:45] LABS: iSTAT Creatinine 1.3 mg/dl (0.6-1.3); iSTAT Hemoglobin 15.6 g/dl (14.0-18.0); iSTAT Ionized Calcium 1.18 mmol/l (1.12-1.32); iSTAT Potassium 3.7 mmol/L (3.3-5.0)
[2020-03-20 14:46] LABS: Basophils # (auto) 0.02 K/uL (0-0.2); Basophils % (auto) 0.2 %; Eosinophils # (auto) 0.17 K/uL (0-0.5); Eosinophils % (auto) 1.4 %; Hematocrit (blood only) 44.4 % (42-52); Hemoglobin 14.6 g/dL (14.0-18.0); Immature Granulocytes # (auto) 0.03 K/uL (0.00-0.02); Immature Granulocytes % (auto) 0.3 %; Lymphocytes # (auto) 2.64 K/uL (1.2-3.4); Lymphocytes % (auto) 22.1 %; Mean Corpuscular Hemoglobin 30.7 pg (25-34); Mean Corpuscular Hgb Conc 32.9 g/dL (32-36); Mean Corpuscular Volume 93.3 fL (80-100); Mean Platelet Volume 11.6 fL (7.4-10.4); Monocytes # (auto) 1.39 K/uL (0.11-0.59); Monocytes % (auto) 11.7 %; Neutrophils # (auto) 7.68 K/uL (1.4-6.5); Neutrophils % (auto) 64.3 %; Platelet Count 237 K/uL (130-400); RDW Coefficient of Variation 13.9 % (11.5-14.5); RDW Standard Deviation 47.6 fL (36.4-46.3); Red Blood Count 4.76 M/uL (4.7-6.1); White Blood Count 11.93 K/uL (4.8-10.8)
[2020-03-20 14:59] LABS: Partial Thromboplastin Ratio 0.9; Partial Thromboplastin Time 26.1 Seconds (21.0-31.0); Prothrombin Time 10.9 Seconds (9.0-12.0)
[2020-03-20 15:00] LABS: BUN Creatinine Ratio 20.1 (10-20); Calcium 9.3 mg/dl (8.5-10.1); Est GFR (African American) 54.7; Est GFR (Non-African American) 47.2; Potassium 3.8 mmol/L (3.5-5.1)
--- NOTE | 2020-03-20 15:06 | XRay Report ---
XR chest 2V PA/lateral CLINICAL HISTORY: Atypical chest pain COMPARISON STUDY: 12:30 6T FINDINGS: The heart is mildly enlarged. There are postsurgical changes of a midline sternotomy. There is mild chronic interstitial thickening. There is no failure. There is no focal pulmonary consolidat ion. There are no pleural effusions. There are postsurgical changes involving the left shoulder.[ IMPRESSION: No active disease in the chest. ACT 112: Negative or not required by law. Electronically signed by: Peter Alvarez M.D. 03/20/2020 3:05 PM
[2020-03-20 15:09] LABS: Troponin I 13.7 ng/ml (0-0.045)
[2020-03-20] MEDS ORDERED: Heparin IV Low Dose WITH Bolus IV STA (16:18)
[2020-03-20] MEDS ORDERED: Heparin BOLUS **ED Use Only IV STA (16:38)
[2020-03-20] MEDS ORDERED: HEPARIN SOD (PORCINE) 1000 UNIT/ML 10 ML VIAL ONE (16:38)
[2020-03-20] MEDS: HEPARIN SODIUM/DEXTROSE 25,000 UNITS/500 ML BAG IV SCH (16:43)
--- NOTE | 2020-03-20 17:22 | History & Physical Report ---
Date of Service March 20, 2020 Assessment & Plan (1) Non-ST elevation MT (NSTEMI): Presented with unstable angina that was progressively worsening, troponin XIII upon arrival. ECG with new LBBB but is status post three-vessel CABG in 2017 since last ECG was taken here -Admit to PCU for telemetry monitoring Heart healthy diet for now and n.p.o. after midnight for cardiac catheterization tomorrow Serial troponin until peaks Cardiology consultation appreciated -Continue heparin drip started in the ER -If has recurrent chest pain, would contact cardiology and plan for more urgent catheterization versus starting nitroglycerin drip -Continue aspirin, metoprolol, simvastatin -Check lipid panel in the morning-recommend switching to either atorvastatin or rosuvastatin -Check COVID-19 test as a preoperative test prior to cardiac catheterization (2) Coronary artery disease: Known severe CAD status post three-vessel CABG Cardiac catheterization in 05/2016 remarkable for 70% ostial LM stenosis along with moderate mid LAD, OM2 disease and severe PDA disease. Underwent 3 vessel CABG (PIERCE to LAD, SVG to Ramus, SVG to PDA) on 06/29/[address] Roldan. Now with unstable angina as above -Continue meds as above (3) Aortic stenosis: Echo on 10/2019 with moderate to severe aortic stenosis, preserved EF, aortic valve area 0.9 cm Now here with angina, no syncope and no heart failure Defer to cardiology if would like a repeat echocardiogram (4) Claudication of both lower extremities: Also has complaint today of right greater than left lower extremity c laudication ongoing for several months, worse with exertion and relieved with rest Barely palpable dorsalis pedis pulse on the right and 1+ dorsalis pedis pulse on the left Defer to interventional cardiology as to future work-up, but nothing urgent needs to be done at this moment Consider lower extremity angiogram in the future Continue aspirin, statin (5) Hypertension: Blood pressures are mildly elevated -Continue home metoprolol succinate 100 mg p.o. twice daily, HCTZ 12.5 mg p.o. once daily Follow blood pressures and titrate up on HCTZ versus adding on ARB as he is intolerant to COLLEEN inhibitor (6) Pre-diabetes: Hemoglobin A1c 5.9% in 07/2019 Follows with endocrinology Not on medications for this Needs continued dietary and lifestyle changes Follow A1c once annually (7) Osteoporosis: Secondary to primary hyperparathyroidism which is now been corrected Follows with endocrinology (8) History of primary hyperparathyroidism: Now status post parathyroidectomy Follows with endocrinology No evidence of hypercalcemia here (9) Hypercholesteremia: Continue simvastatin for now, but consider switching to atorvastatin or rosuvastatin as above for severe CAD (10) Gout: Continue home allopurinol No acute issues (11) DVT prophylaxis: Heparin drip Disposition-admit to PCU History of Present Illness Chief Complaint: Chest pain Primary Care Provider: Emil Waite This patient is an 79-year-old male with history of CAD status post CABG, moderate-severe aortic stenosis, HTN, primary hyperparathyroidism, osteoporosis, prediabetes, gout, kidney stones, and congenital right-sided weakness who presents to the ER with unstable angina and NSTEMI. He reports he has been having exertional chest pain on and off for the last 2 months that is progressively worsening. He can now barely walk 50 feet before having severe substernal chest pain and shortness of breath that is relieved with rest. He also reports severe nausea with his chest pain yesterday. He has not taken nitroglycerin at home for this. He also describes significant claudication in the bilateral legs and feet also with activity that is relieved with rest. Because of the progressively worsening chest pain, he called his PCP who advised him to come to the ER. In the ER, he was found to have a troponin of 13, ECG with LBBB which is changed from previous however previous ECG was prior to his CABG. His vital signs were otherwise stable. He was seen urgently by the associate professor of management at the bedside who initially was recommending urgent cardiac catheterization, however this had to be put off for a simultaneous STEMI on another patient. Because Mr. Angeles was chest pain-free and stable, it was decided to admit him, place him on a heparin drip, and plan for cardiac catheterization in the morning. He denies any recent fevers/chills/sweats, no exposures to people with COVID-19. He denies abdominal pain or diarrhea or constipation. No vomiting. No urinary issues. Allergies Allergy/AdvReac Type Severity Reaction Status Date / Time lisinopril Allergy Unknown PT "HAS NO Verified 03/20/20 15:22 IDEA" oxycodone AdvReac Severe HALLUCINATI Verified 03/20/20 15:22 ONS Home Medications Home Medications Medication Instructions Recorded Confirmed Type aspirin [Aspir-81] 81 mg PO DAILY #0 03/08/14 03/20/20 History lwytgaahdw-[id number]-jwmm 1 cap PO Q8H PRN 12/20/18 03/20/20 History [Fioricet] celecoxib [Celebrex] 200 mg PO BID PRN 12/20/18 03/20/20 History simvastatin 40 mg tablet 40 mg PO DAILY #30 tab 03/05/19 03/20/20 History metoprolol succinate 100 mg 100 mg PO BID #60 tab 03/29/19 03/20/20 Rx tablet,extended release 24 hr allopurinol 300 mg PO DAILY 03/20/20 03/20/20 History hydrochlorothiazide 12.5 mg PO DAILY 03/20/20 03/20/20 History Past Med/Surg History Medical History Aortic stenosis Atrial flutter Biceps tendon tear Coronary artery disease Elevated hemoglobin A1c Gout History of primary hyperparathyroidism Hypercholesteremia Hypertension Nephrolithiasis Osteoporosis Pre-diabetes Right sided weakness Surgical History History of arthroscopy of left knee History of back surgery History of thyroid surgery Hx of parathyroidectomy Left upper parathyroidectomy Apr 2017 Hx of shoulder surgery Hx of sinus surgery S/P triple vessel bypass Family History Mother Stroke Cancer Social History (Updated 03/20/20 @ 21:08 by Valery Molina MD) Smoking Status: Never smoker Tobacco Type: Smokeless Tobacco (Dip or Chew) Hx Alcohol Use: No Hx Substance Use: No Preferred Language: Mosotho Communication Ability: Effective Cpa Tax Required: No Beliefs That Will Affect Care: None marital status: Current Living Situation: Spouse current occupational status: retired 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 Feels Safe at Home: Yes Safety Concerns: Feels Safe At This Time Assistive Devices: Denture - Upper Review of Systems Review of Systems: All systems reviewed & are unremarkable except as noted in HPI & below Physical Exam Constitutional: WD/WN, vitals as above Eyes: PERRL, conjunctivae normal, anicteric sclerae ENMT: external ear and nose normal, oropharynx normal Neck: trachea midline, no thyromegaly Respiratory: normal respiratory effort, lungs clear to auscultation Cardiovascular: Rate/Rhythm: regular rate and regular rhythm Heart Sounds: + murmur (3/6 ROBERTO CARLOS at the RUSB) Vessels: dorsalis pedis pulses present (Barely palpable on the right, 1+ on the left) Extremities: no calf tenderness and no edema Trophic changes of the legs bilaterally Chest (Breasts): Chest: + abnormal inspection of chest (Midline sternotomy sc ar) Gastrointestinal (Abdomen): normal bowel sounds, soft, nontender, no hepatosplenomegaly Musculoskeletal: Extremities: + extremities abnormal to inspection (Right upper and lower extremities with atrophy of muscles and mild contracture of the right upper extremity), no cyanosis and no clubbing Skin: no rashes, warm and dry Neurologic: moves all extremities, + focal motor deficit (3/5 strength in right ankle dorsiflexion and plantarflexion as well as 4/5 strength in right hip flexion and right upper extremity throughout) and awake Psychiatric: A+Ox3, euthymic affect Lymphatic: no lymphedema Results & Data Results & Data ([facility]) Vital Signs (Past 12 Hours) Vital Signs Temp Pulse Pulse Resp BP BP Pulse Ox 03/20/20 16:45 75 20 146/64 H 95 03/20/20 15:30 76 22 126/76 97 03/20/20 15:00 77 21 130/78 97 03/20/20 14:36 96 03/20/20 14:30 71 24 130/76 94 03/20/20 14:23 72 23 128/66 95 03/20/20 14:11 36.5 C 79 16 137/66 96 Laboratory Results 03/20/20 03/20/20 03/20/20 Range/Units 20:09 14:33 14:23 WBC (4.8-10.8) K/uL RBC (4.7-6.1) M/uL Hgb (14.0-18.0) g/dL POC Hgb 15.6 (14.0-18.0) g/dl Hct (42-52) % POC Hct 46 (42-52) % MCV (80-100) fL MCH (25-34) pg MCHC (32-36) g/dL RDW Std Deviation (36.4-46.3) fL RDW Coeff of Izabela (11.5-14.5) % Plt Count (130-400) K/uL MPV (7.4-10.4) fL Immature Gran % (Auto) % Neut % (Auto) % Lymph % (Auto) % Bullitt % (Auto) % Eos % (Auto) % Baso % (Auto) % Neut # (Auto) (1.4-6.5) K/uL Lymph # (Auto) (1.2-3.4) K/uL Bullitt # (Auto) (0.11-0.59) K/uL Eos # (Auto) (0-0.5) K/uL Baso # (Auto) (0-0.2) K/uL Immature Gran # (Auto) (0.00-0.02) K/uL PT (9.0-12.0) Seconds INR (0.9-1.1) APTT (21.0-31.0) Seconds PTT Ratio POC Sodium 143 (135-144) mmol/L Sodium 143 (136-145) mmol/L POC Potassium 3.7 (3.3-5.0) mmol/L Potassium 3.8 (3.5-5.1) mmol/L POC Chloride 104 (101-112) mmol/L Chloride 109 H (98-107) mmol/L Carbon Dioxide 28 (21-32) mmol/L POC Total CO2 25 (24-31) mmol/L Anion Gap 6.0 (3-11) POC Anion Gap 18.0 (16-25) mmol/L POC BUN 28 H (7-18) mg/dl BUN 28 H (7-18) mg/dl Creatinine 1.39 (0.6-1.4) mg/dl POC Creatinine 1.3 (0.6-1.3) mg/dl Est Cr Clr Drug Dosing 43.0 ml/min Est GFR ( Amer) 54.7 Est GFR (Non-Af Amer) 47.2 BUN/Creatinine Ratio 20.1 H (10-20) Glucose 90 (70-99) mg/dl POC Glucose (other) 81 (70-99) mg/dl Calcium 9.3 (8.5-10.1) mg/dl POC Ioniz Calcium Candie 1.18 (1.12-1.32) mmol/l Troponin I 13.900 H* 13.700 H* (0-0.045) ng/ml Lipase 89 (73-393) U/L 03/20/20 03/20/20 Range/Units 14:23 14:23 WBC 11.93 H (4.8-10.8) K/uL RBC 4.76 (4.7-6.1) M/uL Hgb 14.6 (14.0-18.0) g/dL POC Hgb (14.0-18.0) g/dl Hct 44.4 (42-52) % POC Hct (42-52) % MCV 93.3 (80-100) fL MCH 30.7 (25-34) pg MCHC 32.9 (32-36) g/dL RDW Std Deviation 47.6 H (36.4-46.3) fL RDW Coeff of Izabela 13.9 (11.5-14.5) % Plt Count 237 (130-400) K/uL MPV 11.6 H (7.4-10.4) fL Immature Gran % (Auto) 0.3 % Neut % (Auto) 64.3 % Lymph % (Auto) 22.1 % Bullitt % (Auto) 11.7 % Eos % (Auto) 1.4 % Baso % (Auto) 0.2 % Neut # (Auto) 7.68 H (1.4-6.5) K/uL Lymph # (Auto) 2.64 (1.2-3.4) K/uL Bullitt # (Auto) 1.39 H (0.11-0.59) K/uL Eos # (Auto) 0.17 (0-0.5) K/uL Baso # (Auto) 0.02 (0-0.2) K/uL Immature Gran # (Auto) 0.03 H (0.00-0.02) K/uL PT 10.9 (9.0-12.0) Seconds INR 1.0 (0.9-1.1) APTT 26.1 (21.0-31.0) Seconds PTT Ratio 0.9 POC Sodium (135-144) mmol/L Sodium (136-145) mmol/L POC Potassium (3.3-5.0) mmol/L Potassium (3.5-5.1) mmol/L POC Chloride (101-112) mmol/L Chloride (98-107) mmol/L Carbon Dioxide (21-32) mmol/L POC Total CO2 (24-31) mmol/L Anion Gap (3-11) POC Anion Gap (16-25) mmol/L POC BUN (7-18) mg/dl BUN (7-18) mg/dl Creatinine (0.6-1.4) mg/dl POC Creatinine (0.6-1.3) mg/dl Est Cr Clr Drug Dosing ml/min Est GFR ( Amer) Est GFR (Non-Af Amer) BUN/Creatinine Ratio (10-20) Glucose (70-99) mg/dl POC Glucose (other) (70-99) mg/dl Calcium (8.5-10.1) mg/dl POC Ioniz Calcium Candie (1.12-1.32) mmol/l Troponin I (0-0.045) ng/ml Lipase (73-393) U/L Diagnostic Findings Chest x-ray image personally reviewed by me and agree with the following report: XR chest 2V PA/lateral CLINICAL HISTORY: Atypical chest pain COMPARISON STUDY: 12:30 6T FINDINGS: The heart is mildly enlarged. There are postsurgical changes of a midline sternotomy. There is mild chronic interstitial thickening. There is no failure. There is no focal pulmonary consolidation. There are no pleural effusions. There are postsurgical changes involving the left shoulder.[ IMPRESSION: No active disease in the chest. ECG Additional Comments: ECG with normal sinus rhythm, LBBB, changed from previous with new LBBB Code Status & VTE Plan Code Status Full code VTE Prophylaxis Plan VTE Prophylaxis will be ordered: Yes PG Care Time/CCT Total # of Minutes Spent Total Time Spent with Patient: Total time spent is greater than 50% in coordination of care (as documented) at patient's floor/unit and/or counseling patient: Coding Level of Care Code 38180 Initial Inpt Care Lvl 3 Diagnoses Non-ST elevation MT (NSTEMI) I21.4 Coronary artery disease I25.10 Aortic stenosis I35.0 Claudication of both lower extremities I73.9 Hypertension I10 Pre-diabetes R73.03 Osteoporosis M81.0 History of primary hyperparathyroidism Z86.39 Hypercholesteremia E78.00 Gout M10.9 DVT prophylaxis Z29.9
--- NOTE | 2020-03-20 17:32 | Emergency Department Note ---
History of Present Illness General Chief Complaint: Chest Pain Stated Complaint: CHEST PAIN SENT BY DR Hidalgo Seen by Provider: 03/20/20 14:29 History of Present Illness Provider Complaint: chest pain Onset (ago): month(s) Duration: intermittent Onset: during exertion Pain Location: substernal Pain Radiation: none Severity: severe Maximum Pain Intensity: 10 Current Pain Intensity: 0 Quality: + aching and + similar to prior GA Relieved By: + rest Exacerbated By: + movement Context: no recent illness, no recent surgery, no recent immobilization, no recent travel, no new medications and no history of DVT/PE Associated symptoms: + dyspnea; no nausea, no diaphoresis, no sense of impending doom, no syncope, no palpitations and no cough Patient reports his pain was severe today when he was trying to feed the birds in his bird feeder. He stated he rested and his symptoms resolved. He stated he called his doctor who told him to come to the emergency department. Patient reported he had extreme chest pain and difficulty breathing while walking to the emergency department the pain and difficulty breathing resolved completely when he was resting in the hospital bed. Home Medications Home Medications Medication Instructions Recorded Confirmed Type aspirin [Aspir-81] 81 mg PO DAILY #0 03/08/14 03/20/20 History vwhiicubfw-tckxjshjvjaoi-ktyv 1 cap PO Q8H PRN 12/20/18 03/20/20 History [Fioricet] celecoxib [Celebrex] 200 mg PO BID PRN 12/20/18 03/20/20 History simvastatin 40 mg tablet 40 mg PO DAILY #30 tab 03/05/19 03/20/20 History metoprolol succinate 100 mg 100 mg PO BID #60 tab 03/29/19 03/20/20 Rx tablet,extended release 24 hr allopurinol 300 mg PO DAILY 03/20/20 03/20/20 History hydrochlorothiazide 12.5 mg PO DAILY 03/20/20 03/20/20 History Allergies Allergy/AdvReac Type Severity Reaction Status Date / Time lisinopril Allergy Unknown PT "HAS NO Verified 03/20/20 15:22 IDEA" oxycodone AdvReac Severe HALLUCINATI Verified 03/20/20 15:22 ONS Past Med/Surg History Medical History Atrial flutter Biceps tendon tear Coronary artery disease Elevated hemoglobin A1c History of primary hyperparathyroidism Hypercholesteremia Hypertension Osteoporosis Pre-diabetes Surgical History History of arthroscopy of left knee History of back surgery History of thyroid surgery Hx of parathyroidectomy Left upper parathyroidectomy Apr 2017 Hx of shoulder surgery Hx of sinus surgery S/P triple vessel bypass Family History Mother Stroke Cancer Social History Smoking Status: Never smoker current occupational status: retired Feels Safe at Home: Yes Review of Systems A total of 10 systems reviewed and were otherwise negative Physical Exam Vital Signs Vital Signs - 24 hr 03/20/20 14:11 03/20/20 14:23 03/20/20 14:30 Temperature 36.5 C Temperature Source Oral Pulse Rate 79 72 71 Pulse Rate [Left Finger] Pulse Rate from SpO2 Sensor 72 72 Respiratory Rate 16 23 24 Blood Pressure 137/66 128/66 130/76 Blood Pressure [Left Arm] Blood Pressure Mean 89 91 97 Blood Pressure Mean [Left Arm] Pulse Oximetry 96 95 94 Oxygen Delivery Method Room Air Sepsis Recent Fever Within 48 Hours No Sepsis New/Unexplained Change in Mental Status N/A Sepsis Action Taken by Nursing No Action Required 03/20/20 14:36 03/20/20 15:00 03/20/20 15:30 Temperature Temperature Source Pulse Rate 77 76 Pulse Rate [Left Finger] Pulse Rate from SpO2 Sensor 77 76 Respiratory Rate 21 22 Blood Pressure 130/78 126/76 Blood Pressure [Left Arm] Blood Pressure Mean 96 96 Blood Pressure Mean [Left Arm] Pulse Oximetry 96 97 97 Oxygen Delivery Method Room Air Sepsis Recent Fever Within 48 Hours Sepsis New/Unexplained Change in Mental Status Sepsis Action Taken by Nursing 03/20/20 16:45 Temperature Temperature Source Pulse Rate Pulse Rate [Left Finger] 75 Pulse Rate from SpO2 Sensor Respiratory Rate 20 Blood Pressure Blood Pressure [Left Arm] 146/64 H Blood Pressure Mean Blood Pressure Mean [Left Arm] 91 Pulse Oximetry 95 Oxygen Delivery Method Sepsis Recent Fever Within 48 Hours Sepsis New/Unexplained Change in Mental Status Sepsis Action Taken by Nursing Physical Exam GENERAL: He is oriented to person, place, and time. He appears well-developed and well-nourished. He does not appear distressed. HENT: Exam performed. - Head: Normocephalic and atraumatic. - Right Ear: External ear normal. No mastoid tenderness. - Left Ear: External ear normal. No mastoid tenderness. - Mouth/Throat: The oropharynx is clear and moist. No trismus in the jaw. No dental abscesses or uvula swelling. No oropharyngeal exudate or tonsillar abscesses. EYES: Conjunctivae and EOM are normal. Pupils are equal, round, and reactive to light. Right eye exhibits no discharge. Left eye exhibits no discharge. No s cleral icterus. NECK: Normal range of motion. Neck supple. No JVD present. No spinous process tenderness present. No carotid bruit present. No rigidity. No tracheal deviation and normal range of motion present. No Brudzinski's sign and no Kernig's sign noted. CV: Normal rate, regular rhythm, normal heart sounds and intact distal pulses. There is no peripheral edema. Palpable radial pulses bue. PULM/CHEST: Effort normal and breath sounds normal. No respiratory distress. No stridor. He has no wheezes. He has no rales. - Chest Wall: He exhibits no tenderness. ABD: The abdomen is soft. Bowel sounds are normal. He has no distension. No mass is present. There is no tenderness. There is no rebound, no guarding, no Orosco's sign and no tenderness at McBurney's point. Rovsig negative. MUSC/SKEL: Normal range of motion. There is no peripheral edema, tenderness or deformity. LYMPH: No cervical adenopathy. NEURO: He is alert and oriented to person, place, and time. He has normal strength. No cranial nerve deficit or sensory deficit. Coordination and gait normal. GCS eye subscore is 4. GCS verbal subscore is 5. GCS motor subscore is 6. Cerebellar tests wnl. SKIN: Skin is warm and dry. He is not diaphoretic. PSYCH: He has a normal mood and affect. Behavior is normal. Judgment and thought content normal. Course Course 162: The patient was evaluated in room A10. A complete history and physical exam was performed. Cardiac monitoring: An order was placed for continuous cardiac monitoring. The monitor shows a rate of 80 with sinus rhythm 1523: Vital signs stable. Patient's troponin is elevated at 13. Patient reports no chest pain or difficulty breathing at this time. He states his symptoms completely resolved since he has been lying in the stretcher. Repeat EKG shows no STEMI. Discussed with Dr. Braxton, the patient's director operations who states he will be down to evaluate the patient. 1557: Dr. Braxton at bedside. He states he will take the patient emergently to the Urology Nurse. Dr. Braxton states he will alert the Urology Nurse team no need to call her heart alert over the speakers. [facility] 1615: Dr. Braxton states that there is no other patient needs to go to the Urology Nurse before this patient for STEMI. He asked that this patient be admitted to the medicine service and heparin be started on the patient for an end STEMI. Patient continues to report no chest pain at this time. Dr. Braxton states he will conduct a cardiac catheterization on the patient either after the acute STEMI he is taking now or tomorrow morning. 1620: [facility]. Administered Medications Heparin Sodium/Dextrose (Heparin Sodium/Dextrose) 25,000 units in 500 mls @ 18 mls/hr IV .Q24H [facility]; Protocol Stop: 04/19/20 16:29 Last Admin: 03/20/20 16:43 Dose: 900 units/hr, 18 mls/hr Documented by: [id number] Cosigned by: [id number] Discontinued Medications Aspirin (Aspirin Chew 324 Mg) 324 mg PO NOW STA Stop: 03/20/20 14:37 Last Admin: 03/20/20 14:44 Dose: 324 mg Documented by: [id number] Heparin Sodium (Porcine) (Heparin Sod (Porcine) 1000 Unit/Ml 10 Ml Vial) Confirm Administered Dose 10,000 units .ROUTE .STK-MED ONE Stop: 03/20/20 16:39 Last Admin: 03/20/20 16:44 Dose: 4,000 units Documented by: [id number] Cosigned by: [id number] Heparin Sodium/Dextrose (Heparin Iv Low Dose With Bolus) 1 ea IV NOW STA; Protocol Stop: 03/20/20 16:19 Last Admin: 03/20/20 16:58 Dose: Not Given Documented by: [id number] Medical Decision Making Laboratory Data Result diagrams: 03/20/20 14:23 03/20/20 14:23 Labs: Lab Results 09/24/20 09/24/20 09/24/20 Range/Units 14:23 14:23 14:23 WBC 11.93 H (4.8-10.8) K/uL RBC 4.76 (4.7-6.1) M/uL Hgb 14.6 (14.0-18.0) g/dL POC Hgb (14.0-18.0) g/dl Hct 44.4 (42-52) % POC Hct (42-52) % MCV 93.3 (80-100) fL MCH 30.7 (25-34) pg MCHC 32.9 (32-36) g/dL RDW Std Deviation 47.6 H (36.4-46.3) fL RDW Coeff of Izabela 13.9 (11.5-14.5) % Plt Count 237 (130-400) K/uL MPV 11.6 H (7.4-10.4) fL Immature Gran % (Auto) 0.3 % Neut % (Auto) 64.3 % Lymph % (Auto) 22.1 % [place] % (Auto) 11.7 % Eos % (Auto) 1.4 % Baso % (Auto) 0.2 % Neut # (Auto) 7.68 H (1.4-6.5) K/uL Lymph # (Auto) 2.64 (1.2-3.4) K/uL [place] # (Auto) 1.39 H (0.11-0.59) K/uL Eos # (Auto) 0.17 (0-0.5) K/uL Baso # (Auto) 0.02 (0-0.2) K/uL Immature Gran # (Auto) 0.03 H (0.00-0.02) K/uL PT 10.9 (9.0-12.0) Seconds INR 1.0 (0.9-1.1) APTT 26.1 (21.0-31.0) Seconds PTT Ratio 0.9 POC Sodium (135-144) mmol/L Sodium 143 (136-145) mmol/L POC Potassium (3.3-5.0) mmol/L Potassium 3.8 (3.5-5.1) mmol/L POC Chloride (101-112) mmol/L Chloride 109 H (98-107) mmol/L Carbon Dioxide 28 (21-32) mmol/L POC Total CO2 (24-31) mmol/L Anion Gap 6.0 (3-11) POC Anion Gap (16-25) mmol/L POC BUN (7-18) mg/dl BUN 28 H (7-18) mg/dl Creatinine 1.39 (0.6-1.4) mg/dl POC Creatinine (0.6-1.3) mg/dl Est Cr Clr Drug Dosing 43.0 ml/min Est GFR ( Amer) 54.7 Est GFR (Non-Af Amer) 47.2 BUN/Creatinine Ratio 20.1 H (10-20) Glucose 90 (70-99) mg/dl POC Glucose (other) (70-99) mg/dl Calcium 9.3 (8.5-10.1) mg/dl POC Ioniz Calcium Candie (1.12-1.32) mmol/l Troponin I 13.700 H* (0-0.045) ng/ml Lipase 89 (73-393) U/L 03/20/20 Range/Units 14:33 WBC (4.8-10.8) K/uL RBC (4.7-6.1) M/uL Hgb (14.0-18.0) g/dL POC Hgb 15.6 (14.0-18.0) g/dl Hct (42-52) % POC Hct 46 (42-52) % MCV (80-100) fL MCH (25-34) pg MCHC (32-36) g/dL RDW Std Deviation (36.4-46.3) fL RDW Coeff of Izabela (11.5-14.5) % Plt Count (130-400) K/uL MPV (7.4-10.4) fL Immature Gran % (Auto) % Neut % (Auto) % Lymph % (Auto) % [place] % (Auto) % Eos % (Auto) % Baso % (Auto) % Neut # (Auto) (1.4-6.5) K/uL Lymph # (Auto) (1.2-3.4) K/uL [place] # (Auto) (0.11-0.59) K/uL Eos # (Auto) (0-0.5) K/uL Baso # (Auto) (0-0.2) K/uL Immature Gran # (Auto) (0.00-0.02) K/uL PT (9.0-12.0) Seconds INR (0.9-1.1) APTT (21.0-31.0) Seconds PTT Ratio POC Sodium 143 (135-144) mmol/L Sodium (136-145) mmol/L POC Potassium 3.7 (3.3-5.0) mmol/L Potassium (3.5-5.1) mmol/L POC Chloride 104 (101-112) mmol/L Chloride (98-107) mmol/L Carbon Dioxide (21-32) mmol/L POC Total CO2 25 (24-31) mmol/L Anion Gap (3-11) POC Anion Gap 18.0 (16-25) mmol/L POC BUN 28 H (7-18) mg/dl BUN (7-18) mg/dl Creatinine (0.6-1.4) mg/dl POC Creatinine 1.3 (0.6-1.3) mg/dl Est Cr Clr Drug Dosing ml/min Est GFR ( Amer) Est GFR (Non-Af Amer) BUN/Creatinine Ratio (10-20) Glucose (70-99) mg/dl POC Glucose (other) 81 (70-99) mg/dl Calcium (8.5-10.1) mg/dl POC Ioniz Calcium Candie 1.18 (1.12-1.32) mmol/l Troponin I (0-0.045) ng/ml Lipase (73-393) U/L Imaging Data Chest x-ray: Radiologist's impression: XR chest 2V PA/lateral CLINICAL HISTORY: Atypical chest pain COMPARISON STUDY: 12:30 6T FINDINGS: The heart is mildly enlarged. There are postsurgical changes of a midline sternotomy. There is mild chronic interstitial thickening. There is no failure. There is no focal pulmonary consolidation. There are no pleural effusions. There are postsurgical changes involving the left shoulder.[ IMPRESSION: No active disease in the chest. ACT 112: Negative or not required by law. Electronically signed by: Peter Alvarez M.D. 03/20/2020 3:05 PM Dictated: 03/20/20 1504 Transcribed: 03/20/20 1504 ECG Data Additional Comments: EKG 1 at 1411: Sinus rhythm with a rate of 80. First- degree AV block present. QRS 128. QTc 459. Left bundle branch block present. Sgarbosa sign negative. EKG 2 at 1520: Sinus rhythm with rate of 74. First-degree AV block present. QRS 128 QTc 472 left bundle branch block present. Sgarbosa sign negative. [facility] Narrative 1629: The patient was evaluated in room A10. A complete history and physical exam was performed. Cardiac monitoring: An order was placed for continuous cardiac monitoring. The monitor shows a rate of 80 with sinus rhythm 1523: Vital signs stable. Patient's troponin is elevated at 13. Patient reports no chest pain or difficulty breathing at this time. He states his symptoms completely resolved since he has been lying in the stretcher. Repeat EKG shows no STEMI. Discussed with Dr. Braxton, the patient's director operations who states he will be down to evaluate the patient. 1557: Dr. Braxton at bedside. He states he will take the patient emergently to the Urology Nurse. Dr. Braxton states he will alert the Urology Nurse team no need to call her heart alert over the speakers. [facility]. 1615: Dr. Braxton states that there is no other patient needs to go to the Urology Nurse before this patient for STEMI. He asked that this patient be admitted to the medicine service and heparin be started on the patient for an end STEMI. Patient continues to report no chest pain at this time. Dr. Braxton states he will conduct a cardiac catheterization on the patient either after the acute STEMI he is taking now or tomorrow morning. 1620: [facility]. Impression & Plan Non-ST elevation GA (NSTEMI) Critical Care Time Critical Care Time: Yes Total Critical Care Time: 53 I have personally spent greater than 53 minutes of critical care time in the direct management of this patient. This includes bedside care, interpretation of diagnostic studies, and testing, discussion with consultants, patient, and family members, and other required patient management activities. This 53 minutes is in excess of all separately billable procedures. Discharge Plan Visit Data Chief Complaint: Chest Pain Stated Complaint: CHEST PAIN SENT BY ED Provider: Christian Garcias Discharge Problem: Non-ST elevation GA (NSTEMI) Patient Disposition: Admitted As Inpatient Forms Stand Alone Forms: My [facility] Prescriptions Prescriptions: No Action aspirin [Aspir-81] 81 mg Tablet,Delayed Release (Dr/Ec) 81 mg PO DAILY Qty: 0 RF: 0 simvastatin 40 mg tablet 40 mg PO DAILY Qty: 30 RF: 0 metoprolol succinate 100 mg tablet extended release 24 hr 100 mg PO BID Qty: 60 RF: 2 celecoxib [Celebrex] 200 mg Capsule 200 mg PO BID PRN (Reason: Pain) RF: 0 nsyjsojxcn-nflxrcmreeezv-whxz [Fioricet] 50-300-40 mg Capsule 1 cap PO Q8H PRN (Reason: Headache) RF: 0 allopurinol 300 mg tablet 300 mg PO DAILY RF: 0 hydrochlorothiazide 12.5 mg tablet 12.5 mg PO DAILY RF: 0 Referrals Referrals: Emil Waite, PAJeremyC [Primary Care Provider] -
[2020-03-20] MEDS ORDERED: POLYETHYLENE (MIRALAX) 17 GM PACK PO PRN (18:17)
[2020-03-20] MEDS ORDERED: NITROGLYCERIN SL 0.4 MG/TAB TAB SL PRN (18:17)
[2020-03-20] MEDS ORDERED: ACETAMINOPHEN 325 MG TAB PO PRN (18:17)
[2020-03-20] MEDS ORDERED: ONDANSETRON INJ 2 MG/ML 2 ML VIAL IV PRN (18:17)
[2020-03-20] MEDS ORDERED: BUTALBITAL/ACETAMIN/CAFFEINE TAB PO PRN (18:38)
[2020-03-20] MEDS: METOPROLOL SUCC 50MG EXT REL TAB PO SCH (20:23)
[2020-03-20] MEDS ORDERED: ZOLPIDEM TARTRATE 5 MG TAB PO PRN (21:00)
[2020-03-20 22:58] LABS: Partial Thromboplastin Ratio 1.4; Partial Thromboplastin Time 38.6 Seconds (21.0-31.0)
[2020-03-20] MEDS ORDERED: HEPARIN IV BOLUS 4,500 UNITS in SYRINGE 0 ML IV ONE (23:15)
[2020-03-21 06:37] LABS: Basophils # (auto) 0.02 K/uL (0-0.2); Basophils % (auto) 0.2 %; Eosinophils # (auto) 0.35 K/uL (0-0.5); Eosinophils % (auto) 3.8 %; Hematocrit (blood only) 42.4 % (42-52); Hemoglobin 14.3 g/dL (14.0-18.0); Immature Granulocytes # (auto) 0.02 K/uL (0.00-0.02); Immature Granulocytes % (auto) 0.2 %; Lymphocytes # (auto) 2.44 K/uL (1.2-3.4); Lymphocytes % (auto) 26.8 %; Mean Corpuscular Hgb Conc 33.7 g/dL (32-36); Mean Platelet Volume 11.8 fL (7.4-10.4); Monocytes # (auto) 1.04 K/uL (0.11-0.59); Monocytes % (auto) 11.4 %; Neutrophils # (auto) 5.23 K/uL (1.4-6.5); Neutrophils % (auto) 57.6 %; Platelet Count 178 K/uL (130-400); RDW Coefficient of Variation 13.7 % (11.5-14.5); RDW Standard Deviation 45.8 fL (36.4-46.3); Red Blood Count 4.61 M/uL (4.7-6.1)
[2020-03-21 06:58] LABS: Partial Thromboplastin Ratio 2.1
[2020-03-21 07:01] LABS: Partial Thromboplastin Time 58.7 Seconds (21.0-31.0)
[2020-03-21 07:05] LABS: BUN Creatinine Ratio 24.4 (10-20); Creatinine Clr Calc Pharmacy 55.2 ml/min; Est GFR (African American) 72.6; Est GFR (Non-African American) 62.6; Potassium 3.7 mmol/L (3.5-5.1)
[2020-03-21 07:20] LABS: Troponin I 10.6 ng/ml (0-0.045)
[2020-03-21] MEDS: SIMVASTATIN 40 MG TAB PO SCH (08:29)
[2020-03-21] MEDS: ASPIRIN 81 MG ECTAB PO SCH (08:29)
[2020-03-21] MEDS: METOPROLOL SUCC 50MG EXT REL TAB PO SCH ×2 (08:29→20:52)
[2020-03-21] MEDS: allopurinoL 300 MG TAB PO SCH (08:29)
[2020-03-21] MEDS: hydroCHLOROthiazide 25 MG TAB PO SCH (08:29)
[2020-03-21] MEDS ORDERED: fentaNYL citrate 100 MCG/2 ML VIAL ONE (10:24)
[2020-03-21] MEDS ORDERED: HEPARIN (PORCINE) 1000 UNIT/ML 10 ML (CATH LAB USE ONLY) ONE ×2 (10:24→15:00)
[2020-03-21] MEDS ORDERED: niCARdipine HCL INJ 2.5 MG/ML 10 ML AMP ONE (10:24)
[2020-03-21] MEDS ORDERED: MIDAZOLAM HCL 1 MG/ML 2ML VIAL ONE (10:24)
[2020-03-21] MEDS ORDERED: NITROGLYCERIN/D5W 100MCG/ML 20ML SYR ONE (10:25)
--- NOTE | 2020-03-21 12:58 | Electrocardiogram Report ---
Test Reason : Blood Pressure : / mmHG Vent. Rate : 080 BPM Atrial Rate : 080 BPM P-R Int : 200 ms QRS Dur : 128 ms QT Int : 398 ms P-R-T Axes : 059 -50 120 degrees QTc Int : 459 ms Normal sinus rhythm Possible Left atrial enlargement Left axis deviation Left bundle branch block Abnormal ECG When compared with ECG of 27-JUN-2016 09:22, QRS duration has increased Left bundle branch block is now Present Confirmed by Zeke Abreu ([id number]) on 03/21/2020 12:57:57 PM Referred By: ER Confirmed By:Zeke Abreu
--- NOTE | 2020-03-21 13:03 | Hospitalist Progress Note ---
Date of Service March 21, 2020 Assessment & Plan (1) Non-ST elevation [place] (NSTEMI): Presented with unstable angina that was progressively worsening, troponin elevated at 13.7 upon arrival. ECG with new LBBB but is status post three-vessel CABG in 2016 since last ECG was taken here Peak trop 13.9 and repeat decreased on medication management -Continue heparin drip started in the ED -Continue aspirin, metoprolol, simvastatin - LDL 49, HDL 42, TG 83 Planning for cath today -Check COVID-19 test as a preoperative test prior to cardiac catheterization, negative on admission 03/20 (2) Coronary artery disease: Known severe CAD status post three-vessel CABG Cardiac catheterization in 05/2016 remarkable for 70% ostial LM stenosis along with moderate mid LAD, OM2 disease and severe PDA disease. Underwent 3 vessel CABG (PIERCE to LAD, SVG to Ramus, SVG to PDA) on 06/29/[address] Roldan. Now with unstable angina as above -Continue meds as above (3) Aortic stenosis: Echo on 10/2019 with moderate to severe aortic stenosis, preserved EF, aortic valve area 0.9 cm Now here with angina, no syncope and no heart failure Defer to cardiology if would like a repeat echocardiogram (4) Claudication of both lower extremities: Also has complaint today of right greater than left lower extremity claudication ongoing for several months, worse with exertion and relieved with rest Barely palpable dorsalis pedis pulse on the right and 1+ dorsalis pedis pulse on the left Defer to interventional cardiology as to future work-up, but nothing urgent needs to be done at this moment Consider lower extremity angiogram in the future Continue aspirin, statin (5) Hypertension: Blood pressures are mildly elevated -Continue home metoprolol succinate 100 mg p.o. twice daily, HCTZ 12.5 mg p.o. once daily Follow blood pressures and titrate up on HCTZ versus adding on ARB as he is intolerant to COLLEEN inhibitor (6) Pre-diabetes: Hemoglobin A1c 5.9% in 07/2019 Follows with endocrinology Not on medications for this Needs continued dietary and lifestyle changes Follow A1c once annually BS WNL (7) Osteoporosis: Secondary to primary hyperparathyroidism which is now been corrected Follows with endocrinology (8) History of primary hyperparathyroidism: Now status post parathyroidectomy Follows with endocrinology No evidence of hypercalcemia here (9) Hypercholesteremia: Continue simvastatin for now, but consider switching to atorvastatin or rosuvastatin as above for severe CAD (10) Gout: Continue home allopurinol No acute issues (11) DVT prophylaxis: Heparin drip Disposition-admit to PCU Admission and Anticipated Discharge Date Admission Date: March 20, 2020 Subjective Pt seen just prior to cath. He was up, moving around the room. Denies current chest pain or SOB. States this has been intermittent over the last 2 months and feels fine at present. NPO today for OR but states he was eating without issue [employer]. Pt denies fever, abd pain, n/v/c/d, LE pain or swelling. Review of Systems Review of Systems: Pertinent positives and negatives reviewed in HPI--all others negative Physical Exam Constitutional: WD/WN, vitals as above Eyes: normal visual knight by confrontation and + anicteric sclerae Neck: normal visual inspection and trachea midline Respiratory: normal respiratory effort, lungs clear to auscultation Cardiovascular: Rate/Rhythm: regular rate and regular rhythm Gastrointestinal (Abdomen): Inspection/Auscultation: abdomen not distended Percussion/Palpation: abdomen soft; abdomen nontender Musculoskeletal: Head/Neck/Chest: normocephalic and head atraumatic negative for edema, peripheral pulses intact Skin: no rashes, warm and dry Neurologic: awake; not confused Speech / Cognition: normal speech Psychiatric: A+Ox3, euthymic affect Results & Data Results & Data ([facility]) Vital Signs (Past 12 Hours) Vital Signs Temp Pulse Pulse Resp BP BP Pulse Ox 03/21/20 10:36 66 18 157/78 H 98 03/21/20 07:29 36.4 C L 71 20 146/73 H 97 03/21/20 07:22 68 03/21/20 04:02 36.7 C 74 18 143/73 H 97 PG Care Time/CCT Total # of Minutes Spent Total Time Spent with Patient: Total time spent is greater than 50% in coordination of care (as documented) at patient's floor/unit and/or counseling patient: Coding Level of Care Code 10678 Subseq Hosp Care Lvl 3 Diagnoses Non-ST elevation NH (NSTEMI) I21.4 Coronary artery disease I25.10 Aortic stenosis I35.0 Claudication of both lower extremities I73.9 Hypertension I10 Pre-diabetes R73.03 Osteoporosis M81.0 History of primary hyperparathyroidism Z86.39 Hypercholesteremia E78.00 Gout M10.9 DVT prophylaxis Z29.9
[2020-03-21] MEDS ORDERED: CLOPIDOGREL BISULFATE 300 MG TAB ONE (16:05)
--- NOTE | 2020-03-21 16:21 | Pre Anesthesia Assessment ---
Date of Service March 21, 2020 Pre Sedation Assessment Vital Signs Temp Pulse Pulse Resp BP BP Pulse Ox 03/21/20 10:36 66 18 157/78 H 98 03/21/20 07:29 97.5 F L 71 20 146/73 H 97 03/21/20 07:22 68 03/21/20 04:02 98.1 F 74 18 143/73 H 97 03/20/20 23:45 98.2 F 66 18 116/60 95 03/20/20 19:14 97.7 F 75 20 155/74 H 96 03/20/20 18:48 81 03/20/20 18:20 97.7 F 77 22 171/77 H 97 03/20/20 16:45 75 20 146/64 H 95 Cardiovascular RRR, no murmur, no edema Respiratory normal respiratory effort, lungs clear to auscultation Pre-Sedation Airway Assessment Smoking Status: Never smoker Hx Sleep Apnea: No Hx Difficult Intubation: No Short, Thick Neck: No Thyromental Distance: > or= 3.5 Finger Breadths Oral Cavity: + Dentures Mallampati Class: II ASA: ASA3 NPO Status Date of Last Intake of Fluids: 03/20/20 Time of Last Intake of Fluids: 20:00 Date of Last Intake of Solid Food: 03/20/20 Time of Last Intake of Solid Foods: 20:00 Procedure Planning Contraindications for Sedation: none Current Medications Reviewed: Yes Notes The planned sedation has been discussed with the patient. Informed Consent was obtained. I have identified the patient, determined the appropriateness of sedation and have assessed the patient immediately prior to the procedure. All medicine(s) and interventions are by my order.
--- NOTE | 2020-03-21 16:22 | Post Anesthesia Assessment ---
Date of Service March 21, 2020 Post Sedation Assessment Vital Signs Temp Pulse Pulse Resp BP BP Pulse Ox 03/21/20 10:36 66 18 157/78 H 98 03/21/20 07:29 97.5 F L 71 20 146/73 H 97 03/21/20 07:22 68 03/21/20 04:02 98.1 F 74 18 143/73 H 97 03/20/20 23:45 98.2 F 66 18 116/60 95 03/20/20 19:14 97.7 F 75 20 155/74 H 96 03/20/20 18:48 81 03/20/20 18:20 97.7 F 77 22 171/77 H 97 03/20/20 16:45 75 20 146/64 H 95 Recovery Score Activity: Moves 4 extremities Respiration: Deep Breath/Cough Circulation: +/-20% PreAnes Value Consciousness: Fully Awake Oxygen Saturation: O2 needed for >90% Discharge Sedation Level of Care: Fast Track Phase II Post Sedation Plan On clinical assessment, the patient appears to have tolerated the sedation without complications. Patient is recovering as anticipated. Patient will continue to be monitored by nursing and may be discharged when sedation discharge criteria are met per below protocol. Upon Completions of procedure up to 15 minutes continue every 5 minute vital signs and the P.A.R. score; then discharge to a Phase I or Fast Track to Phase II per the following guidelines: * Discharge Patient to appropriate Phase II area if PAR is 8 or greater or return to pre- procedure baseline. The post - procedure orders will be as directed. * If PAR score is less than 8 or not return to pre-procedure baseline then patient will follow Phase I monitoring till PAR is reached for Phase II. The Phase I may be done in procedure room or may call to secure a Phase I area. * If naloxone or flumazenil are used for reversal, hold in Phase I for continued monitoring from when last reversal dose was given for a minimum of 60 minutes or longer pending the nurse and/or physician discretion of patient condition before discharge to Phase II. Please call the Sedation Physician to re-evaluate and complete post-note for discharge to Phase II area. Do NOT discharge from procedure sedation or Phase 1 until post- sedation evaluation note is complete by procedure /sedation MD Sedation Discharge Instructions to be given to the patient at discharge to home.
--- NOTE | 2020-03-21 16:25 | Cardiology Consultation ---
Date of Consultation March 21, 2020 Assessment & Plan (1) Non-ST elevation ID (NSTEMI): - post 3v CABG 06/2016 (PIERCE-LAD, SVG-Ramus, SVG-PDA) 2. Mild aortic stenosis 3. Moderate to severe LVH with mild dynamic LV outflow tract obstruction 4. Hypertension 5. Primary hyperparathyroidism-status post partial parathyroidectomy 04/2017 Presentation concerning for high risk NSTEMI and recommend further evaluation with cardiac catheterization. Discussed risk benefits and alternatives of procedure with patient and he is willing to proceed. Access via right femoral artery. In the interim continue heparin infusion, aspirin, beta-brittni and statin. Further recommendations pending findings. History of Present Illness Attending Physician: Kristy Alan DO History of Present Illness Mr. Angeles is a very pleasant 79-year-old man with a history hypertension, gout, hyperdynamic LV with mild LV outflow tract obstruction and severe coronary artery disease with left main involvement status post 3 vessel CABG 06/2016 who returns today for routine scheduled follow-up. Patient admitted yesterday in the setting of progressive dyspnea on exertion over the last several months. Symptoms progressed to the point where he was short of breath walking short distances including across his home. Was seen by his PCP who reported EKG changes and sent to ED. EKG on arrival showed new left bundle branch block. Patient was chest pain-free. Troponin was elevated at 13. Admitted overnight, started on heparin infusion. Troponin downtrending. No additional chest pain overnight. Electrically stable. Prior cardiac history: Patient was admitted to [facility] in 05/2016 in the setting of intermittent chest pain with mildly elevated troponin. Cardiac catheterization showed remarkable for 70% ostial LM stenosis along with moderate mid LAD, OM2 disease and severe PDA disease. Underwent 3 vessel CABG (PIERCE to LAD, SVG to Ramus, SVG to PDA) on 06/29/[address] Roldan. Patient's post hospital course was uncomplicated and was discharged to home on postsurgical day 5. At post hospital follow-up endorsed generalized fatigue, anorexia and constipation. Basic laboratory studies showed hypercalcemia to 12.4 in the setting of elevated PTH was referred to Endocrinology for suspected hyperparathyroidism. 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 Allergies Allergy/AdvReac Type Severity Reaction Status Date / Time lisinopril Allergy Unknown PT "HAS NO Verified 03/20/20 15:22 IDEA" oxycodone AdvReac Severe HALLUCINATI Verified 03/20/20 15:22 ONS Home Medications Home Medications Medication Instructions Recorded Confirmed Type aspirin [Aspir-81] 81 mg PO DAILY #0 03/08/14 03/20/20 History jjaeilpvxx-blpbqcjvnrfla-moti 1 cap PO Q8H PRN 12/20/18 03/20/20 History [Fioricet] celecoxib [Celebrex] 200 mg PO BID PRN 12/20/18 03/20/20 History simvastatin 40 mg tablet 40 mg PO DAILY #30 tab 03/05/19 03/20/20 History metoprolol succinate 100 mg 100 mg PO BID #60 tab 03/29/19 03/20/20 Rx tablet,extended release 24 hr allopurinol 300 mg PO DAILY 03/20/20 03/20/20 History hydrochlorothiazide 12.5 mg PO DAILY 03/20/20 03/20/20 History Patient History Medical History (Updated 03/20/20 @ 21:32 by Valery Molina MD) Aortic stenosis Atrial flutter Biceps tendon tear Claudication of both lower extremities Coronary artery disease Elevated hemoglobin A1c Gout History of primary hyperparathyroidism Hypercholesteremia Hypertension Nephrolithiasis Osteoporosis Pre-diabetes Right sided weakness Surgical History History of arthroscopy of left knee History of back surgery History of thyroid surgery Hx of parathyroidectomy Left upper parathyroidectomy Apr 2017 Hx of shoulder surgery Hx of sinus surgery S/P triple vessel bypass Family History Mother Stroke Cancer Social History (Updated 03/20/20 @ 21:08 by Valery Molina MD) Smoking Status: Never smoker Tobacco Type: Smokeless Tobacco (Dip or Chew) Hx Alcohol Use: No Hx Substance Use: No Preferred Language: Comoran Communication Ability: Effective Rn Maternal Child Required: No Beliefs That Will Affect Care: None marital status: Current Living Situation: Spouse current occupational status: retired 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 Extremities: Warm, well perfused, no edema. 2+ radial pulses Skin: No rashes or lesions. Neuro: Nonfocal Psych: Alert orient x3, normal affect and mood Results & Data ([facility]) Vital Signs (Past 12 Hours) Vital Signs Temp Pulse Pulse Resp BP Pulse Ox 03/21/20 10:36 66 18 157/78 H 98 03/21/20 07:29 97.5 F L 71 20 146/73 H 97 03/21/20 07:22 68 PG Care Time/CCT Total # of Minutes Spent Total Time Spent with Patient: Total time spent is greater than 50% in coordination of care (as documented) at patient's floor/unit and/or counseling patient: Coding Level of Care Code 75317 Initial Inpt Care Lvl 3 Diagnoses Non-ST elevation ID (NSTEMI) I21.4
[2020-03-21] MEDS ORDERED: SODIUM CHLORIDE 0.9% 1000ML 1,000 ML IV SCH (16:45)
--- NOTE | 2020-03-21 17:16 | Cardiac Catheterization ---
[facility] Data: Stone Polisher Hand Cardiac Status Clinical evaluation leading to the procedure CAD Presenation: Non STEMI Anginal Classification: CCS IV Heart Failure: No Cardiogenic Shock within 24 Hours: No Cardiac Arrest within 24 Hours: No Imaging Studies Past 6 Months: Yes Stress Studies Past 6 Months: No Diagnostic Physicians Name: Cl Braxton MD Status: Elective Closure Device Percutaneous Entry Location: Radial Closure Device: Radial Band Recommendations: PCI without planned CABG PCI Indication: PCI for high risk Non-CATRINA Lesion Segment Name: mid OM2 Culprit Artery: Yes Stenosis Prior to Rx (%): 100 Chronic Total Occlusion: No IVUS: No FFR: No Pre-Procedure ERIC Flow: 0 Previously Treated Lesion: No Lesion Complexity: High/C Lesion Length (mm): 30 Thrombus Present: Yes Bifurcation Lesion: No Guidewire Across Lesion: Stenosis Post-Procedure (%): 0 Post-Procedure ERIC Flow: 2 (2.5) Devices(s) Deployed: No Yes Intraprocedure Events Significant Disection: No Perforation: No Cardiac Cath Procedure Full Procedure Date March 21, 2020 Pre-Procedure Diagnosis Pre-Procedure Diagnosis: Non STEMI AUC Score AUC Score: 8 Post-Procedure Diagnosis Post-Procedure Diagnosis: Severe CAD, Successful PCI and Elevated Intracardiac P ressures Procedure(s) Performed Procedure(s) Performed: Coronary Angiography, Left Heart Cath, Drug Eluting Stent, Bypass Graft Angiography and Femoral Artery Angiography Hat Trimmer Cl Braxton MD Loading Machine Operator(s) Xiomy Estimated Blood Loss Estimated Blood Loss: 15 Medication(s) Medication(s): Clopidogrel, Fentanyl, Heparin, Lidocaine 1%, Nicardipine, Nitroglycerin and Versed Summary of Findings Indication: High risk NSTEMI Access: 6 Fr right common femoral artery Catheters: JL4, JR4, EBU 3.5 guide Findings: LM - Diffuse moderate to severe disease, 50 to 60% distal at bifurcation LAD -calcified, 80-90 % ostial stenosis, 60% proximal stenosis prior to takeoff of medium caliber first diagonal without significant disease. Mid circumflex subtotally occluded with faint competitive flow Circumflex - 30% ostial, 40-50% mid segment disease, 95% stenosis in small distal circumflex. 100% acute on chronic mid OM2 occlusion RCA - Dominant, medium caliber, 40% proximal to mid disease. Mild diffuse distal disease. 100% chronic occlusion of ostial right PDA. Small right PLB without significant disease. SVG to ?OM (ramus by operative report)--occluded SVG to right PDAwidely patent PIERCE to LADwidely patent LVEDP - 18 -- PCI -- Antithrombotic therapy: Heparin, clopidogrel Procedure: Left main cannulated with EBU 3.5 guide Roto Rooter Operator 50 wire passed across lesion into distal OM 2 OM 2 lesion predilated with 2.0 compliant balloon After balloon inflation no significant reflow Balloon exchanged for 2.0 OTW balloon. Injection through balloon confirm intraluminal position. Distal vessel with diffuse disease. Repeat angioplasty of mid to distal OM2 Mid to distal OM2 stented with 2.25 x 30 mm [place] drug-eluting stent Post stenting ERIC I flow distally with possible distal dissection Distal vessel after stent treated with prolonged 2.0 balloon inflation IC vasodilators administered for spasm Post procedure ERIC 2-3 flow, stent well expanded with minimal residual stenosis and minimal residual [id number] dissection. Wire removed and passed across the distal circumflexinto left PLB. Unable to deliver 2.0 balloon to lesion and attempted distal circumflex PCI aborted. Arterial Closure: Angio-Seal Summary: 1. Severe multivessel coronary artery disease -Acute on chronic 100% mid OM2 (acute culprit). 95% stenosis in small small distal circumflex 50 to 60% distal left main 80 to 90% ostial LAD. 100% mid segment occlusion 100% ostial right PDA 2. Widely patent PIERCE to LAD, SVG to PDA 3. Chronically occluded SVG to OM 4. Mildly elevated intracardiac filling pressure 5. Aortic stenosispullback gradient 30 mmHg 6. Successful PCI of mid to distal OM2 with single drug-eluting stent (2.25 x 30 mm Richy). 7. Unsuccessful attempt at PCI of small distal circumflex. Recommendations: To PCU for continued monitoring Loaded with clopidogrel 600 mg in Stone Polisher Hand Continue dual-antiplatelet therapy for at least 1 year Continue statin, and ASCVD risk factor modification Consult cardiac Rehab Repeat echocardiogram to assess aortic stenosis. Titrate antianginal therapy for residual CAD. Repeat attempt at PCI to distal circumflex could be attempted if refractory symptoms, nonsevere . Hemodynamics Rest Ao:: 157/67/110 Final Ao: 154/61/100 LV: 185/18 Recommendations Recommendations: PCI without planned CABG Specimens Specimens: None Radiation Exposure (mGy) 4334 Contrast (mls) 140 Fluids (cc crystalloids) Fluids (cc crystalloids): 168 Drains Drains: none Anesthesia moderate Procedural Complication(s) None Disposition PCU I attest to the content of the Intraoperative Record and any orders documented therein. Any exceptions are noted below. [facility] Procedure Codes Cardiac Catheterization Procedure 1: Cardiovascular Cath Procedures: 48050 Coronaries & LHC (+/-LV) & Grafts/IM (arterial & venous) Moderate Sedation Procedure 1: Sedation/Anesthesia: 92334 Mod Sedation by the same physician;Init15 Min Child Age 5 & Up Procedure 2: Sedation/Anesthesia: 03943 Mod Sedation by the same physician; Ea [id number] Minutes Stenting Procedure 1: Cardiovascular Stent Procedures: 66237 Perc transluminal revascularization of acute sub/total occl, aMI PG Care Time/CCT Total # of Minutes Spent Total Time Spent with Patient: Total time spent is greater than 50% in coordination of care (as documented) at patient's floor/unit and/or counseling patient:
[2020-03-21] MEDS: HEPARIN SODIUM/DEXTROSE 25,000 UNITS/500 ML BAG IV SCH (17:49)
[2020-03-22 07:38] LABS: Partial Thromboplastin Time 27.6 Seconds (21.0-31.0)
[2020-03-22] MEDS ORDERED: PERFLUTREN LIPID MICROSPHERE (DEFINITY) IV ONE (08:31)
[2020-03-22] MEDS ORDERED: CLOPIDOGREL BISULFATE 75 MG TAB PO SCH (09:00)
[2020-03-22] MEDS: METOPROLOL SUCC 50MG EXT REL TAB PO SCH (09:23)
[2020-03-22] MEDS: SIMVASTATIN 40 MG TAB PO SCH (09:23)
[2020-03-22] MEDS: ASPIRIN 81 MG ECTAB PO SCH (09:23)
[2020-03-22] MEDS: hydroCHLOROthiazide 25 MG TAB PO SCH (09:23)
[2020-03-22] MEDS: allopurinoL 300 MG TAB PO SCH (09:24)
--- NOTE | 2020-03-22 09:30 | Electrocardiogram Report ---
Test Reason : Blood Pressure : / mmHG Vent. Rate : 072 BPM Atrial Rate : 072 BPM P-R Int : 210 ms QRS Dur : 128 ms QT Int : 428 ms P-R-T Axes : 052 -48 122 degrees QTc Int : 468 ms Sinus rhythm with 1st degree A-V block Left atrial enlargement Left axis deviation Left ventricular hypertrophy with QRS widening and repolarization abnormality Abnormal ECG When compared with ECG of 20-MAR-2020 14:11, No significant change was found Confirmed by Yury Bobo ([id number]) on 03/22/2020 9:30:16 AM Referred By: Emil Waite Confirmed By:Yury Bobo
--- NOTE | 2020-03-22 10:41 | XCELERA ---
[id number]
--- NOTE | 2020-03-22 10:57 | Cardiology Progress Note ---
Date of Service March 22, 2020 Assessment & Plan (1) Coronary artery disease: He is feeling well following his recent intervention. He has no chest discomfort or groin discomfort. He is stable for discharge. Admission and Anticipated Discharge Date Admission Date: March 20, 2020 Subjective He is feeling well today, no cardiovascular complaints. No right groin discomfort (the site of the catheterization). Physical Exam Physical Exam: Constitutional: Alert, cooperative and in no distress. Pulmonary: Clear to auscultation bilaterally. Cardiac: Regular rhythm with no murmur, gallop or rub. Abdomen: Soft, nontender with normal bowel sounds. Extremities: No edema. The right groin cath site is clean and dry without hematoma or bruit. Dressing removed. Skin: No rash, ecchymoses or petechiae. Results & Data ([facility]) Vital Signs (Past 12 Hours) Vital Signs Temp Pulse Resp BP BP Pulse Ox 03/22/20 08:08 37.0 C 69 18 142/68 H 99 03/22/20 03:03 36.7 C 87 20 136/66 95 03/21/20 23:36 157/76 H 03/21/20 23:09 36.3 C L 88 22 183/72 H 97 Laboratory Results Coagulation 03/22/20 Range/Units 06:29 APTT 27.6 (21.0-31.0) Seconds Intake and Output 03/21/20 03/22/20 03/22/20 22:59 06:59 14:59 Intake Total 339.9 / 1494.6 1000 / 1494.6 Output Total 550 / 1150 600 / 1150 Balance -210.1 / 344.6 400 / 344.6 Intake: IV 219.9 / 1374.6 1000 / 1374.6 HEPARIN SODIUM/DEXTROSE 25,000 219.9 / 374.6 units In 500 ml @ 900 UNITS/HR 18 mls/hr IV .Q24H SIMONE Rx#: [id number] Nss 1000ML 1,000 ml @ 100 mls/ 1000 / 1000 hr IV .Q10H SIMONE Rx#:[id number] Oral 120 / 120 Output: Urine 550 / 1150 600 / 1150 Other: Other Intake Source SIPS Weight 75.2 kg Diagnostic Findings An electrocardiogram this morning shows sinus rhythm at 81 bpm with a left bundle branch block pattern. An echocardiogram shows normal overall systolic function, some dyssynchronous wall motion due to the conduction abnormality. PG Care Time/CCT Total # of Minutes Spent Total Time Spent with Patient: Total time spent is greater than 50% in coordination of care (as documented) at patient's floor/unit and/or counseling patient: Coding Level of Care Code 35571 Subseq Hosp Care Lvl 2 Diagnoses Coronary artery disease I25.10
--- NOTE | 2020-03-22 11:38 | Discharge Summary ---
Date of Service March 22, 2020 Admission HPI Per Admitting Provider This patient is an 79-year-old male with history of CAD status post CABG, moderate-severe aortic stenosis, HTN, primary hyperparathyroidism, osteoporosis, prediabetes, gout, kidney stones, and congenital right-sided weakness who presents to the ER with unstable angina and NSTEMI. He reports he has been having exertional chest pain on and off for the last 2 months that is progressively worsening. He can now barely walk 50 feet before having severe substernal chest pain and shortness of breath that is relieved with rest. He also reports severe nausea with his chest pain yesterday. He has not taken nitroglycerin at home for this. He also describes significant claudication in the bilateral legs and feet also with activity that is relieved with rest. Because of the progressively worsening chest pain, he called his PCP who advised him to come to the ER. In the ER, he was found to have a troponin of 13, ECG with LBBB which is changed from previous however previous ECG was prior to his CABG. His vital signs were otherwise stable. He was seen urgently by the fats and oils loader at the bedside who initially was recommending urgent cardiac catheterization, however this had to be put off for a simultaneous STEMI on another patient. Because Mr. Angeles was chest pain-free and stable, it was decided to admit him, place him on a heparin drip, and plan for cardiac catheterization in the morning. He denies any recent fevers/chills/sweats, no exposures to people with COVID-19. He denies abdominal pain or diarrhea or constipation. No vomiting. No urinary issues. Principal Diagnosis Pt states he is feeling well since his cath. No recurrence of SOB, chest pain. He is eating without issue. Pt denies fever, abd pain, n/v/c/d, LE pain or s welling. Discharge Exam Constitutional WD/WN, vitals as above Eyes normal visual knight by confrontation and + anicteric sclerae Neck normal visual inspection and trachea midline Respiratory normal respiratory effort, lungs clear to auscultation Cardiovascular Rate/Rhythm: regular rate and regular rhythm Gastrointestinal (Abdomen) Inspection/Auscultation: abdomen not distended Percussion/Palpation: abdomen soft; abdomen nontender Musculoskeletal Head/Neck/Chest: normocephalic and head atraumatic Skin no rashes, warm and dry Neurologic awake; not confused Speech / Cognition: normal speech Psychiatric A+Ox3, euthymic affect Discharge Data Allergies Allergy/AdvReac Type Severity Reaction Status Date / Time lisinopril Allergy Unknown PT "HAS NO Verified 03/20/20 15:22 IDEA" oxycodone AdvReac Severe HALLUCINATI Verified 03/20/20 15:22 ONS Consultations 03/20/20 15:59 ED Decision to Admit Stat 03/20/20 18:17 Consult Cardiology Routine Consult Case Management - Discharge Planning Routine 03/21/20 16:46 Consult Cardiac Rehabilitation Routine Procedures Performed Operation Date: 03/20/20 11:00 <No data on this case meets the specified criteria> Operation Date: 03/21/20 11:00 Actual Procedures p Cath, Left w/Cors Vent Grafts - Adarsh Braxton MD s Cineradiography w/Routine Exam - Adarsh Braxton MD s Drug Eluting Stent SGl Vessel - Adarsh Braxton MD Ordered Studies 03/21/20 10:42 CL Cath Imgs for PACS use only Stat Hospital Course (1) Non-ST elevation SC (NSTEMI): Presented with unstable angina that was progressively worsening, troponin elevated at 13.7 upon arrival. ECG with new LBBB but is status post three-vessel CABG in 2017 since last ECG was taken here Peak trop 13.9 and repeat decreased on medication management -maintained heparin drip started in the ED -Continue aspirin, metoprolol, simvastatin - LDL 49, HDL 42, TG 83 s/p cath on 03/21 with JUSTINE placed in OM2 Of note, unable to stent distal circumflex which does have significant stenosis Planning for DAPT x1 yr with aspirin, plavix -Check COVID-19 test as a preoperative test prior to cardiac catheterization, negative on admission 03/20 (2) Coronary artery disease: Known severe CAD status post three-vessel CABG Cardiac catheterization in 05/2016 remarkable for 70% ostial LM stenosis along with moderate mid LAD, OM2 disease and severe PDA disease. Underwent 3 vessel CABG (PIERCE to LAD, SVG to Ramus, SVG to PDA) on 06/29/[address] Roldan. Now with unstable angina as above -Continue meds as above (3) Aortic stenosis: Echo on 10/2019 with moderate to severe aortic stenosis, preserved EF, aortic valve area 0.9 cm Now here with angina, no syncope and no heart failure Repeat ECHO noted for EF 55-60% and moderate level of (4) Claudication of both lower extremities: Also has complaint today of right greater than left lower extremity claudication ongoing for several months, worse with exertion and relieved with rest Barely palpable dorsalis pedis pulse on the right and 1+ dorsalis pedis pulse on the left Defer to interventional cardiology as to future work-up, but nothing urgent needs to be done at this moment Consider lower extremity angiogram in the future Continue aspirin, statin (5) Hypertension: Blood pressures are mildly elevated -Continue home metoprolol succinate 100 mg p.o. twice daily, HCTZ 12.5 mg p.o. once daily Follow blood pressures and titrate up on HCTZ versus adding on ARB as he is intolerant to COLLEEN inhibitor (6) Pre-diabetes: Hemoglobin A1c 5.9% in 07/2019 Follows with endocrinology Not on medications for this Needs continued dietary and lifestyle changes Follow A1c once annually BS WNL (7) Osteoporosis: Secondary to primary hyperparathyroidism which is now been corrected Follows with endocrinology (8) History of primary hyperparathyroidism: Now status post parathyroidectomy Follows with endocrinology No evidence of hypercalcemia here (9) Hypercholesteremia: Continue simvastatin for now, but consider switching to atorvastatin or rosuvastatin as above for severe CAD (10) Gout: Continue home allopurinol No acute issues (11) DVT prophylaxis: Heparin drip Disposition-admit to PCU Total Time Total Time Spent Total Time Spent (In Minutes): >30 Total Time Includes: Examination of the Patient, Discharge Planning, Medication Reconciliation, Communication With Other Providers and Other Discharge Plan Discharge Items Patient Disposition: Home - Self-Care Reason For Visit: CHEST PAIN, NSTEMI Discharge Diagnosis: NSTEMI Activity: Resume your previous activity Non-emergency contact: Primary Care Provider and Adviser Sales Call non-emergency contact if: you have any medication questions, your symptoms worsen and your pain is concerning for you Follow-up/Referrals: Emil Waite PA-C [Primary Care Provider] - Diet: Carb Consistent or DM2 and Heart Healthy Addtl Attending Provider Instructions: You should be seen by your auto parts salesperson next week You should be seen by Emil Waite next week Pending Studies at Discharge: No Stand-Alone Forms: My babbel, Smoking Cessation Medications and DC Order Prescriptions: New clopidogrel 75 mg Tablet 75 mg PO QAM Qty: 30 RF: 0 Continued aspirin [Aspir-81] 81 mg Tablet,Delayed Release (Dr/Ec) 81 mg PO DAILY Qty: 0 RF: 0 simvastatin 40 mg tablet 40 mg PO DAILY Qty: 30 RF: 0 metoprolol succinate 100 mg tablet extended release 24 hr 100 mg PO BID Qty: 60 RF: 2 celecoxib [Celebrex] 200 mg Capsule 200 mg PO BID PRN (Reason: Pain) RF: 0 [id number]-ddxshdihjyrvs-biwd [Fioricet] 50-300-40 mg Capsule 1 cap PO Q8H PRN (Reason: Headache) RF: 0 allopurinol 300 mg tablet 300 mg PO DAILY RF: 0 hydrochlorothiazide 12.5 mg tablet 12.5 mg PO DAILY RF: 0 Discharge Orders: Discharge Order (Routine); Ordered 03/22/20 Ordered By: Kristy Alan Admission Data Admit Date/Time: 03/20/20 17:21 Attending Provider: Kristy Alan Admit Provider: Valery Molina Primary Care Provider: Emil Waite Other Providers: Valery Molina ; Adarsh Braxton Other Interventions: Discharge Summary Assessment (RN) Last Done: 03/22/20 12:04 Coding Level of Care Code D/C Day Management >30 mins Diagnoses Non-ST elevation SC (NSTEMI) I21.4 Coronary artery disease I25.10 Aortic stenosis I35.0 Claudication of both lower extremities I73.9 Hypertension I10 Pre-diabetes R73.03 Osteoporosis M81.0 History of primary hyperparathyroidism Z86.39 Hypercholesteremia E78.00 Gout M10.9 DVT prophylaxis Z29.9
--- NOTE | 2020-03-23 07:36 | Electrocardiogram Report ---
Test Reason : Blood Pressure : / mmHG Vent. Rate : 068 BPM Atrial Rate : 068 BPM P-R Int : 222 ms QRS Dur : 130 ms QT Int : 456 ms P-R-T Axes : 051 -45 127 degrees QTc Int : 484 ms Sinus rhythm with 1st degree A-V block Left bundle branch block Abnormal ECG When compared with ECG of 20-MAR-2020 15:20, (unconfirmed) No significant change was found Confirmed by Zeke Abreu ([id number]) on 03/23/2020 7:35:35 AM Referred By: Emil Waite Confirmed By:Zeke Abreu
--- NOTE | 2020-03-23 08:36 | Electrocardiogram Report ---
Test Reason : Blood Pressure : / mmHG Vent. Rate : 081 BPM Atrial Rate : 081 BPM P-R Int : 188 ms QRS Dur : 132 ms QT Int : 414 ms P-R-T Axes : 035 -42 127 degrees QTc Int : 480 ms Normal sinus rhythm Possible Left atrial enlargement Left axis deviation Left bundle branch block Abnormal ECG When compared with ECG of 21-MAR-2020 06:24, (unconfirmed) No significant change Confirmed by Zeke Abreu ([id number]) on 03/23/2020 8:35:33 AM Referred By: Emil Waite Confirmed By:Zeke Abreu
== END 2020-03-22 12:15 | disposition home or self-care (01) | DRG 247 ==
LOC: ED 14:02 → 2S 17:21 → SUATTDRO 17:21 → 2S 17:39